=== PATIENT | female | born 1965 | race Caucasian/White ===

== ENCOUNTER 2019-08-30 06:00 | Outpatient (RCR) | payer MEDICAID, SELFPAY | END 2019-09-21 23:00 | disposition home or self-care (01) | LOC: TPT 06:00 | PROVIDERS: Family Provider Nurse Practitioner Family; Visit Provider Nurse Practitioner Family | DX: G89.29 Other chronic pain (principal); M54.5 Low back pain; M25.551 Pain in right hip | CPT/HCPCS: 97110 ×4; 97530 ×3; G0283 ==

== ENCOUNTER → 2019-11-13 10:18 | Outpatient (BNVA) | payer MEDICAID, SELFPAY | PROVIDERS: Visit Provider Nurse Practitioner Family | DX: E11.65 Type 2 diabetes mellitus with hyperglycemia (principal); J44.9 Chronic obstructive pulmonary disease, unspecified; E55.9 Vitamin D deficiency, unspecified; M19.90 Unspecified osteoarthritis, unspecified site; D73.9 Disease of spleen, unspecified; E04.1 Nontoxic single thyroid nodule; E78.5 Hyperlipidemia, unspecified; K21.9 Gastro-esophageal reflux disease without esophagitis; I10 Essential (primary) hypertension | CPT/HCPCS: 80053; 80061; 82306; 83036; 85025 ==

== ENCOUNTER 2019-12-02 12:04 | Outpatient (CLI) | payer MEDICAID, SELFPAY ==
[2019-12-02 14:36] LABS: Erythrocyte Sedimentation Rate 11 mm/hr (0-15)
[2019-12-03 11:37] LABS: Cyclic Citrullinated Peptide <16 UNITS
[2019-12-03 12:56] LABS: SS A Ro Sjogrens Antibody <1.0 NEG AI (<1.0 NEG); SS-B/LA IGG <1.0 NEG AI (<1.0 NEG)
[2019-12-03 14:45] LABS: Anti-Nuclear Antibody Screen NEGATIVE (NEGATIVE)
== END 2019-12-02 12:05 | disposition home or self-care (01) ==
LOC: LAB 12:08
PROVIDERS: PCP Nurse Practitioner Family; Visit Provider Internal Medicine Critical Care Medicine
DX: I27.20 Pulmonary hypertension, unspecified (principal)
CPT/HCPCS: 85651; 86038; 86140; 86235; 86431

== ENCOUNTER 2019-12-17 06:19 | Outpatient (CLI) | payer MEDICAID, SELFPAY ==
--- NOTE | 2019-12-17 07:15 | USCV_ITS ---
Rosalinda Roche Age: 54 Gender: F : 1965 Exam Date: 12/17/2019 08:06 Ordering Phys: Viiven Fisher MD ([email or web address]) Technologist: Alysha Conde Exam Location: [facility] [place] Indication: SOB BP: 118 / 90 HR: 107 Rhythm: Sinus Technical Quality: Fair MEASUREMENTS (Male / Female) Normal Values 2D ECHO LV Diastolic Diameter PLAX 4.2 cm 4.2 - 5.9 / 3.9 - 5.3 cm LV Systolic Diameter PLAX 3.2 cm LV Chamber Size 3.6 cm IVS Diastolic Thickness 1.4 cm 0.6 - 1.0 / 0.6 - 0.9 cm IVS Systolic Thickness 1.5 cm LVPW Diastolic Thickness 1.1 cm 0.6 - 1.0 / 0.6 - 0.9 cm LVPW Systolic Thickness 1.3 cm RV Chamber Size 3.2 cm LVOT Diameter 2.0 cm LV Ejection Fraction 2D Teich 46.4 % LV Ejection Fraction MOD 2C 39.2 % LV Ejection Fraction 2C AL 42.4 % LA Diameter 3.3 cm LA Width 2.8 cm LA Height 4.3 cm RA Width 2.9 cm RA Height 4.2 cm Aorta at Sinotubular Diameter 2.1 cm M-MODE LV Diastolic Diameter MM 5.2 cm 4.2 - 5.9 / 3.9 - 5.3 cm LV Systolic Diameter MM 3.8 cm LV Ejection Fraction MM Teich 51.7 % IVS Diastolic Thickness MM 1.2 cm 0.6 - 1.0 / 0.6 - 0.9 cm IVS Systolic Thickness MM 1.4 cm LVPW Diastolic Thickness MM 0.9 cm 0.6 - 1.0 / 0.6 - 0.9 cm LVPW Systolic Thickness MM 1.3 cm RV Diastolic Diameter MM 1.2 cm Aortic Annulus Diameter 3.5 cm LA Ao Ratio MM 1.0 MV E Point Septal Separation 0.7 cm DOPPLER AV Peak Velocity 123.0 cm/s LVOT Peak Velocity 103.0 cm/s AV Area Cont Eq vti 3.0 cm squared AV Area Cont Eq pk 2.7 cm squared MV Area PHT 4.5 cm squared Mitral E to A Ratio 1.0 MV E' Velocity 8.0 cm/s Mitral E to MV E' Ratio 7.4 Mitral E to LV E' Lateral Ratio 7.4 Mitral E to LV E' Septal Ratio 7.4 TV Peak E Velocity 44.0 cm/s Right Atrial Pressure 3.0 mmHg PV Peak Velocity 70.0 cm/s RV Acceleration Time 0.1 s RV Ejection Time 0.2 s RV AcT/ET 0.3 FINDINGS Left Ventricle Normal left ventricular cavity size. Normal left ventricular systolic function. Left ventricular ejection fraction is estimated at 55 %. No diagnostic regional wall motion abnormality. Normal diastolic function. Right Ventricle Normal right ventricular size and systolic function. Tricuspid valve regurgitant jet is inadequate for estimation of right ventricular systolic pressure. Right Atrium Normal right atrial size. Right atrial pressure estimated at 3 mmHg. Left Atrium Normal left atrial size. Mitral Valve Structurally normal mitral valve. No mitral valve stenosis. Trace mitral valve regurgitation. Aortic Valve Aortic valve not well visualized. Probably tricuspid aortic valve. No aortic valve stenosis. No aortic valve regurgitation. Tricuspid Valve Structurally normal tricuspid valve. Trace tricuspid valve regurgitation. Pulmonic Valve Pulmonic valve not well visualized. Trace pulmonary valve regurgitation. Pericardium No pericardial effusion. Aorta Normal size aortic root and proximal ascending aorta. CONCLUSIONS 1. This is a technically difficult study. Ultrasound enhancing agent (Optison) was used. 2. Normal left ventricular cavity size and systolic function. Left ventricular ejection fraction is estimated at 55 %. No diagnostic regional wall motion abnormality. 3. Normal right ventricular size and systolic function. 4. No significant valvular abnormality. 5. No prior similar studies to compare. Vivien Fisher MD (Electronically Signed) Final Date: 21 December 2019 18:29 S
[2019-12-17] MEDS: perflutren protein-a microsphr 0.22 mg/mL SDV 3 mL IV (08:10)
== END 2019-12-17 06:20 | disposition home or self-care (01) ==
LOC: US 06:21
PROVIDERS: Family Provider Nurse Practitioner Family; PCP Nurse Practitioner Family; Visit Provider Internal Medicine Cardiovascular Disease
DX: I08.1 Rheumatic disorders of both mitral and tricuspid valves (principal); R06.00 Dyspnea, unspecified; R06.02 Shortness of breath
CPT/HCPCS: C8924

== ENCOUNTER → 2019-12-30 16:22 | Outpatient (BNVA) | payer MEDICAID, SELFPAY | PROVIDERS: Family Provider Nurse Practitioner Family; PCP Nurse Practitioner Family; Visit Provider Nurse Practitioner Family | DX: J06.9 Acute upper respiratory infection, unspecified (principal) | CPT/HCPCS: 87400 ==

== ENCOUNTER → 2020-02-15 12:29 | Outpatient (BNVA) | payer MEDICAID, SELFPAY | PROVIDERS: Family Provider Nurse Practitioner Family; PCP Nurse Practitioner Family; Visit Provider Nurse Practitioner Family | DX: E11.65 Type 2 diabetes mellitus with hyperglycemia (principal); I10 Essential (primary) hypertension; E04.1 Nontoxic single thyroid nodule; E55.9 Vitamin D deficiency, unspecified; F41.9 Anxiety disorder, unspecified; F32.9 Major depressive disorder, single episode, unspecified; E78.5 Hyperlipidemia, unspecified; K21.9 Gastro-esophageal reflux disease without esophagitis; R00.0 Tachycardia, unspecified | CPT/HCPCS: 80053; 80061; 82044; 82306; 82607; 83036; 83721; 84443; 85025 ==

== ENCOUNTER → 2020-03-02 11:55 | Outpatient (BNVA) | payer MEDICAID, SELFPAY | PROVIDERS: Family Provider Nurse Practitioner Family; PCP Nurse Practitioner Family; Visit Provider Nurse Practitioner Family | DX: D72.829 Elevated white blood cell count, unspecified (principal) | CPT/HCPCS: 85025 ==

== ENCOUNTER 2020-03-16 06:38 | Outpatient (CLI) | payer MEDICAID, SELFPAY ==
--- NOTE | 2020-03-16 11:00 | PFTS_ITS ---
Date of Study:03/16/20 Date of Dictation: MECHANICS: Forced vital capacity (FVC) is reduced. Forced expiratory volume in one second (FEV1) is reduced. FEV1/FVC is normal. FLOW VOLUME LOOP: Narrow with mild scooping. LUNG VOLUMES: Total lung capacity (TLC) is normal. Residual volume (RV) is increased. DIFFUSING CAPACITY FOR CARBON MONOXIDE: Mildly reduced. INTERPRETATION: The pulmonary function tests are consistent with moderate restriction. There is no significant postbronchodilator response. The flow volume loop is suggestive of small airways disease. Lung volumes are consistent with air trapping. Gas exchange (DLCO) is mildly reduced. MTDD
== END 2020-03-16 06:39 | disposition home or self-care (01) ==
LOC: RT 06:39
PROVIDERS: Family Provider Nurse Practitioner Family; PCP Nurse Practitioner Family; Visit Provider Internal Medicine Critical Care Medicine
DX: R06.02 Shortness of breath (principal)
CPT/HCPCS: 94060; 94726; 94729; J7611

== ENCOUNTER 2020-03-16 12:00 | Outpatient (CLI) | payer MEDICAID, SELFPAY | END 2020-03-16 12:01 | disposition home or self-care (01) | LOC: SLEEP 03-17 09:04 | PROVIDERS: Family Provider Nurse Practitioner Family; PCP Nurse Practitioner Family; Visit Provider Internal Medicine Critical Care Medicine | DX: G47.10 Hypersomnia, unspecified (principal) | CPT/HCPCS: G0399 ==

== ENCOUNTER 2020-05-25 08:59 | Outpatient (CLI) | payer MEDICAID, SELFPAY ==
--- NOTE | 2020-05-25 09:30 | MM_ITS ---
WS: [id number] SCREENING DIGITAL MAMMOGRAM WITH CAD HISTORY: breast cancer screening COMPARISON: 03/03/2019 and 05/31/2017 Bilateral CC and MLO views submitted. Computer aided detection analyzed. Breast composition: There are scattered areas of fibroglandular density. No suspicious masses, microc alcifications or architectural distortion. Benign calcifications in each breast. MM/[id number] IMPRESSION: BI-RADS: 2-Benign FOLLOW UP: 1 Year Follow-up
== END 2020-05-25 09:00 | disposition home or self-care (01) ==
LOC: RADSHAW 09:02
PROVIDERS: PCP Nurse Practitioner Family; Visit Provider Nurse Practitioner Family
DX: Z12.31 Encounter for screening mammogram for malignant neoplasm of breast (principal)
CPT/HCPCS: 77067

== ENCOUNTER 2020-06-07 20:00 | Outpatient (CLI) | payer MEDICAID, SELFPAY ==
--- NOTE | 2020-07-18 14:10 | PC.SOCIAL ---
Was asked by Carmela in [facility] to complete a Cyber Access precert for patient to get approval for CPAP. Cyber Access precert request was denied and these results were faxed to Carmela at [facility].
== END 2020-06-07 20:01 | disposition home or self-care (01) ==
LOC: SLEEP 06-08 10:23
PROVIDERS: PCP Nurse Practitioner Family; Visit Provider Internal Medicine Critical Care Medicine
DX: G47.33 Obstructive sleep apnea (adult) (pediatric) (principal)
CPT/HCPCS: 95811

== ENCOUNTER → 2020-06-08 09:52 | Outpatient (BNVA) | payer MEDICAID, SELFPAY | PROVIDERS: PCP Nurse Practitioner Family; Visit Provider Nurse Practitioner Family | DX: E11.65 Type 2 diabetes mellitus with hyperglycemia (principal); E04.1 Nontoxic single thyroid nodule; Z79.899 Other long term (current) drug therapy; E55.9 Vitamin D deficiency, unspecified | CPT/HCPCS: 80053; 82043; 82306; 83036; 84443 ==

== ENCOUNTER → 2020-09-09 09:15 | Outpatient (BNVA) | payer MEDICAID, SELFPAY | PROVIDERS: PCP Nurse Practitioner Family; Visit Provider Nurse Practitioner Family | DX: E13.9 Other specified diabetes mellitus without complications (principal); E78.5 Hyperlipidemia, unspecified; I10 Essential (primary) hypertension; J32.9 Chronic sinusitis, unspecified | CPT/HCPCS: 80053; 80061; 83036 ==

== ENCOUNTER 2020-12-19 10:54 | Outpatient (CLI) | payer MEDICAID, SELFPAY ==
--- NOTE | 2020-12-19 10:58 | CT_ITS ---
WS: [id number] LDCT LUNG CANCER SCREENING HISTORY: NICOTINE DEPENDENCE TECHNIQUE: Axial imaging performed from the apices to 1 cm below the costophrenic angles. Coronal and sagittal reformats are submitted with axial MIP series. All CT scans at [facility] use at least one of these dose optimization techniques: automated exposure control; mA and/or kV adjustment per patient size (includes targeted exams where dose is matched to clinical indication); or iterativ e reconstruction. DLP: 57.35 mGy.cm DIvol: 1.58 mGy COMPARISON: 08/17/2019 Diagnostic quality: Satisfactory Lung Nodules: None. Lungs: Mild hyperexpansion. No granulomas. Heart: Normal size heart. No pericardial effusion. Other findings: Minimal atherosclerotic calcifications within the aorta. No adenopathy appreciated. CT/CT lung screening [id number] IMPRESSION: LUNG-RADS: 1-Negative FOLLOW UP: 12 Month: Continue annual screening with LDCT OTHER FINDINGS (S MODIFIER): None.
== END 2020-12-19 10:55 | disposition home or self-care (01) ==
LOC: CT 10:56
PROVIDERS: PCP Nurse Practitioner Family; Visit Provider Internal Medicine Critical Care Medicine
DX: Z12.2 Encounter for screening for malignant neoplasm of respiratory organs (principal); F17.210 Nicotine dependence, cigarettes, uncomplicated
CPT/HCPCS: 71271

== ENCOUNTER 2020-12-28 20:00 | Outpatient (CLI) | payer MEDICAID, SELFPAY | END 2020-12-28 20:01 | disposition home or self-care (01) | LOC: SLEEP 12-29 08:57 | PROVIDERS: PCP Nurse Practitioner Family; Visit Provider Internal Medicine Critical Care Medicine | DX: G47.33 Obstructive sleep apnea (adult) (pediatric) (principal) | CPT/HCPCS: 84550; 85651; 86038; 86140; 86431; 95810 ==

== ENCOUNTER 2021-01-04 10:07 | Outpatient (CLI) | payer MEDICAID, SELFPAY ==
--- NOTE | 2021-01-04 11:00 | USCV_ITS ---
Rosalinda Roche Age: 55 Gender: F : 1965 Exam Date: 01/04/2021 10:44 Ordering Phys: Vivien Fisher MD ([email or web address]) Technologist: Mere Malin Exam Location: [facility] [place] Indication: Premature ventricular complexes BP: / HR: 88 Rhythm: Sinus Technical Quality: Adequate MEASUREMENTS (Male / Female) Normal Values 2D ECHO LV Diastolic Diameter PLAX 2.9 cm 4.2 - 5.9 / 3.9 - 5.3 cm LV Systolic Diameter PLAX 2.5 cm LV Chamber Size 3.0 cm IVS Diastolic Thickness 1.4 cm 0.6 - 1.0 / 0.6 - 0.9 cm IVS Systolic Thickness 1.2 cm LVPW Diastolic Thickness 2.0 cm 0.6 - 1.0 / 0.6 - 0.9 cm LVPW Systolic Thickness 2.5 cm RV Chamber Size 2.3 cm LVOT Diameter 2.1 cm LV Ejection Fraction 2D Teich 30.3 % LV Ejection Fraction MOD 2C 44.8 % LV Ejection Fraction 2C AL 43.5 % LA Diameter 3.3 cm LA Width 2.3 cm LA Height 3.7 cm RA Width 2.6 cm RA Height 3.7 cm Aorta at Sinotubular Diameter 2.3 cm M-MODE LV Diastolic Diameter MM 5.1 cm 4.2 - 5.9 / 3.9 - 5.3 cm LV Systolic Diameter MM 3.1 cm LV Ejection Fraction MM Teich 68.6 % IVS Diastolic Thickness MM 1.2 cm 0.6 - 1.0 / 0.6 - 0.9 cm IVS Systolic Thickness MM 1.4 cm LVPW Diastolic Thickness MM 1.3 cm 0.6 - 1.0 / 0.6 - 0.9 cm LVPW Systolic Thickness MM 1.7 cm Aortic Annulus Diameter 3.3 cm LA Ao Ratio MM 1.1 MV E Point Septal Separation 1.5 cm FINDINGS Left Ventricle Normal left ventricular size, systolic function and wall thickness, with no regional wall motion abnormalities. Left ventricular ejection fraction is estimated at 60 %. Right Ventricle Normal right ventricular size and systolic function. Right Atrium Normal right atrial size. Left Atrium Normal left atrial size. Mitral Valve Mitral valve not well visualized. Aortic Valve Aortic valve not well visualized. Tricuspid Valve Tricuspid valve not well visualized. Pulmonic Valve Pulmonic valve not well visualized. Pericardium No pericardial effusion. Aorta Normal size aortic root. CONCLUSIONS 1. This is a limited echocardiogram. 2. Normal left ventricular size, systolic function and wall thickness, with no regional wall motion abnormalities. Left ventricular ejection fraction is estimated at 60 %. 3. No gross valvular abnormality. Color doppler evaluation was not done. 4. No significant change when compared to old echocardiogram dated 12/17/2019. Vivien Fisher MD (Electronically Signed) Final Date: 08 January 2021 12:19 S
== END 2021-01-04 10:08 | disposition home or self-care (01) ==
LOC: US 10:09
PROVIDERS: PCP Nurse Practitioner Family; Visit Provider Internal Medicine Cardiovascular Disease
DX: I49.3 Ventricular premature depolarization (principal)
CPT/HCPCS: 93308

== ENCOUNTER 2021-01-05 09:08 | Outpatient (CLI) | payer MEDICAID, SELFPAY ==
[2021-01-05] MEDS: iohexol 300 mg/mL 50 mL Btl PO (09:23)
--- NOTE | 2021-01-05 10:30 | CT_ITS ---
WS: [id number] CT ABDOMEN WITHOUT CONTRAST HISTORY: D73.89 - Other diseases of spleen Contiguous single phase 5 mm axial imaging performed to the abdomen. Oral contrast has been provided. Coronal and sagittal reformats are submitted. All CT scans at [facility] use at least on e of these dose optimization techniques: automated exposure control; mA and/or kV adjustment per danielle ent size (includes targeted exams where dose is matched to clinical indication); or iterative reconst ruction. CONTRAST: None DLP: 821.87 mGycm COMPARISON: 08/17/2019 Lower thorax: Unremarkable. Liver: Diffuse moderate to severe hepatic steatosis. The liver is enlarged measuring approximately 19 cm in length. No bile duct dilatation. Gallbladder: Normal. Pancreas: Normal. Spleen: Low-attenuation lesion from the superior lateral spleen measures 10 mm. Stable since 08/17/20 19. Probably a benign cyst. No splenomegaly. Adrenals: Normal. Right kidney: Normal. Left kidney: Normal. Aorta: 2 GI tract: Visualized appendix is normal. No GI tract obstruction. No wall thickening or edema. No adenopathy or free fluid. Abdominal wall: No hernia. Small subcutaneous nodules from prior subcutaneous injection sites. Visualized osseous structures: L4 anterolisthesis by 2 mm. Mild facet joint arthritis at L4-5 and L5- S1. CT/CT abdomen wo con [id number] IMPRESSION: 1. No soft tissue masses in the LEFT or RIGHT upper quadrants. 2. Marked hepatomegaly and hepatic steatosis.
== END 2021-01-05 09:09 | disposition home or self-care (01) ==
PROVIDERS: PCP Nurse Practitioner Family; Visit Provider Nurse Practitioner Family
DX: D73.89 Other diseases of spleen (principal); R16.0 Hepatomegaly, not elsewhere classified; K76.0 Fatty (change of) liver, not elsewhere classified
CPT/HCPCS: 74150; 80053; 80061; 82043; 83036; 84443; Q9967

== ENCOUNTER 2021-02-09 20:00 | Outpatient (CLI) | payer MEDICAID, SELFPAY | END 2021-02-09 20:01 | disposition home or self-care (01) | LOC: SLEEP 02-10 08:55 | PROVIDERS: PCP Nurse Practitioner Family; Visit Provider Internal Medicine Critical Care Medicine | DX: G47.33 Obstructive sleep apnea (adult) (pediatric) (principal) | CPT/HCPCS: 95811 ==

== ENCOUNTER → 2021-03-29 09:34 | Outpatient (BNVA) | payer MEDICARE, MEDICAID, SELFPAY | PROVIDERS: PCP Nurse Practitioner Family; Visit Provider Nurse Practitioner Family | DX: E13.9 Other specified diabetes mellitus without complications (principal); I10 Essential (primary) hypertension; Z12.4 Encounter for screening for malignant neoplasm of cervix; Z12.31 Encounter for screening mammogram for malignant neoplasm of breast; N94.9 Unspecified condition associated with female genital organs and menstrual cycle; E04.1 Nontoxic single thyroid nodule; Z78.9 Other specified health status; L98.9 Disorder of the skin and subcutaneous tissue, unspecified; E55.9 Vitamin D deficiency, unspecified; Z12.39 Encounter for other screening for malignant neoplasm of breast | CPT/HCPCS: 80053; 80061; 82306; 83036; 88175 ==

== ENCOUNTER 2021-04-06 13:33 | Outpatient (CLI) | payer MEDICARE, MEDICAID, SELFPAY ==
--- NOTE | 2021-04-06 14:15 | CT_ITS ---
WS: [id number] LDCT LUNG CANCER SCREENING HISTORY: Nicotine addiction TECHNIQUE: Axial imaging performed from the apices to 1 cm below the costophrenic angles. Coronal and sagittal reformats are submitted with axial MIP series. All CT scans at [facility] use at least one of these dose optimization techniques: automated exposure control; mA and/or kV adjustment per patient size (includes targeted exams where dose is matched to clinical indication); or iterativ e reconstruction. DLP: 58.94 mGy.cm DIvol: 1.58 mGy COMPARISON: 12/19/2020 Diagnostic quality: Satisfactory Lung Nodules: No pulmonary nodules or endobronchial lesions. Lungs: Mild hyperexpansion. Heart: Normal size heart. No pericardial effusion. Other findings: None. CT/CT lung screening [id number] IMPRESSION: LUNG-RADS: 1-Negative FOLLOW UP: 12 Month: Continue annual screening with LDCT OTHER FINDINGS (S MODIFIER): None.
== END 2021-04-06 13:34 | disposition home or self-care (01) ==
LOC: RAD 13:35
PROVIDERS: PCP Nurse Practitioner Family; Visit Provider Internal Medicine Critical Care Medicine
DX: Z12.2 Encounter for screening for malignant neoplasm of respiratory organs (principal); F17.210 Nicotine dependence, cigarettes, uncomplicated
CPT/HCPCS: 71271

== ENCOUNTER 2021-05-08 11:56 | Outpatient (CLI) | payer MEDICARE, MEDICAID, SELFPAY ==
--- NOTE | 2021-05-08 12:45 | US_ITS ---
WS: [id number] ULTRASOUND THYROID TECHNIQUE: Ultrasound of the thyroid. CLINICAL INFORMATION: E04.1 - Nontoxic single thyroid nodule COMPARISON: September 01, 2019 and FINDINGS: Thyroid: Right and left thyroid lobes are normal in size and echotexture. Multiple bilateral thyroid nodules largest in the left lobe. Prior FNA of the largest left lobe nodule. Right thyroid lobe: 5.5 cm x 2.0 cm x 1.7 cm Small right complex nodule measuring 4.6 x 5.6 mm. Left thyroid lobe: 6.2 cm x 2.0 cm x 2.5 cm. Complex cystic left mid thyroid nodule measuring 7.0 x 8.8 x 7.4 mm Additional cystic and solid left thyroid nodule measuring 11 x 14 x 15 mm Isthmus: 0.5 mm. Cervical lymphadenopathy: None. US/US thyroid [id number] IMPRESSION: Small bilateral thyroid nodules are unchanged since
--- NOTE | 2021-05-08 13:30 | US_ITS ---
WS: [id number] ULTRASOUND PELVIS TECHNIQUE: Transabdominal and transvaginal. ULTRASOUND PELVIS TECHNIQUE: Transabdominal. CLINICAL INFORMATION: N94.9 - Unspecified condition associated with female jenna... LMP: : No. COMPARISON: None. FINDINGS: Uterus Orientation: Anteverted. Size: 6.4 cm x 3.9 cm x 2.8 cm. Masses: Multiple small intramural fundal fibroids in the uterus. Largest fibroid measures 1.0 x 1.1 x 1.2 cm Cervix: Incidental nabothian cysts. Indeterminant complex cystic lesion in the cervix measuring 8.1 x 4.8 mm Endometrium: Normal. Endometrium thickness: 0.2 cm. Adnexa: Ovaries not visualized due to pelvic pain. Free fluid: None Other findings: None. US/US pelvic with transvaginal IMPRESSION: 1. Fibroid uterus 2. Complex cystic lesion in the cervix measuring 8.1 x 4.8 mm. Recommend furth er evaluation with hysteroscopy 3. Normal endometrium measuring 2 mm. 4. Ovaries not visualized due to pelvic pain. 5. No free fluid in the cul-de-sac.
== END 2021-05-08 11:57 | disposition home or self-care (01) ==
LOC: US 11:56
PROVIDERS: PCP Nurse Practitioner Family; Visit Provider Nurse Practitioner Family
DX: E04.1 Nontoxic single thyroid nodule (principal); N94.9 Unspecified condition associated with female genital organs and menstrual cycle
CPT/HCPCS: 76536; 76830; 76856

== ENCOUNTER → 2021-05-16 09:55 | Outpatient (BNVA) | payer MEDICARE, MEDICAID, SELFPAY | PROVIDERS: PCP Nurse Practitioner Family; Visit Provider Nurse Practitioner Family | DX: E04.1 Nontoxic single thyroid nodule (principal); Z79.899 Other long term (current) drug therapy; D25.9 Leiomyoma of uterus, unspecified | CPT/HCPCS: 80053; 84443 ==

== ENCOUNTER 2021-05-29 10:31 | Outpatient (CLI) | payer MEDICARE, MEDICAID, SELFPAY ==
--- NOTE | 2021-05-29 10:30 | MM_ITS ---
WS: [id number] BILATERAL DIGITAL SCREENING MAMMOGRAPHY WITH CAD CLINICAL INFORMATION: Z12.31 - Encounter for screening mammogram for malignant ... HISTORY: Screening mammogram. No current complaints. COMPARISON: May 25, 2020 TECHNIQUE: Bilateral CC and MLO views. FINDINGS: Scattered fibroglandular densities bilaterally. Punctate and lucent centered calcifications. No suspi cious focal mass, asymmetry, calcifications, or architectural distortion. No evidence of malignancy. MM/[place] [id number] IMPRESSION: BI-RADS: 2-Benign FOLLOW UP: 1 Year Follow-up Recommend return to annual screening mammography.
== END 2021-05-29 10:32 | disposition home or self-care (01) ==
LOC: RADSHAW 10:33
PROVIDERS: PCP Nurse Practitioner Family; Visit Provider Nurse Practitioner Family
DX: Z12.31 Encounter for screening mammogram for malignant neoplasm of breast (principal)
CPT/HCPCS: 77067

== ENCOUNTER → 2021-06-29 08:40 | Outpatient (BNVA) | payer MEDICARE, MEDICAID, SELFPAY | PROVIDERS: PCP Nurse Practitioner Family; Visit Provider Nurse Practitioner Family | DX: I10 Essential (primary) hypertension (principal); E11.9 Type 2 diabetes mellitus without complications; E78.5 Hyperlipidemia, unspecified; E11.65 Type 2 diabetes mellitus with hyperglycemia; Z71.6 Tobacco abuse counseling | CPT/HCPCS: 80053; 80061; 83036 ==

== ENCOUNTER → 2021-07-25 08:27 | Outpatient (BNVA) | payer MEDICARE, MEDICAID, SELFPAY | PROVIDERS: PCP Nurse Practitioner Family; Visit Provider Nurse Practitioner Family | DX: E11.65 Type 2 diabetes mellitus with hyperglycemia (principal) | CPT/HCPCS: 83036 ==

== ENCOUNTER → 2021-07-27 10:07 | Outpatient (BNVA) | payer MEDICARE, MEDICAID, SELFPAY | PROVIDERS: PCP Nurse Practitioner Family; Visit Provider Obstetrics & Gynecology | DX: D25.9 Leiomyoma of uterus, unspecified (principal); G89.29 Other chronic pain; R10.2 Pelvic and perineal pain; Z87.42 Personal history of other diseases of the female genital tract; Z20.822 Contact with and (suspected) exposure to COVID-19 | CPT/HCPCS: 87635 ==

== ENCOUNTER 2021-08-01 10:44 | Inpatient (IN) | payer MEDICARE, MEDICAID, SELFPAY ==
[2021-07-31 11:05] VITALS: BMI 34.6
[2021-08-01] VITALS (26 sets, daily range): BP systolic 92–126; BP diastolic 45–79; PULSE 87–96; RESP 14–29; TEMP 36.4–37.2; O2SAT 87–95
[2021-08-01] MEDS: sodium chloride 0.9% 1,000 ML 30 ML IV (06:34)
[2021-08-01] MEDS: acetaminophen 1,000 MG/100 ML PIGGYBACK 400 MG IV (06:36)
[2021-08-01 06:37] LABS: Glucose Point of Care 158 mg/dL (70-110)
[2021-08-01] MEDS: CELEcoxib 200 mg Capsule 400 MG PO (06:39)
[2021-08-01] MEDS: phenazopyridine 100 mg Tablet 200 MG PO (06:39)
[2021-08-01] MEDS: ketorolac 30 mg/mL INJ IVP ×3 (07:03→19:07)
--- NOTE | 2021-08-01 07:12 | ANES.PREANE2 ---
Pre-Anesthetic Assessment Pre-Anesthetic Assessment: Height/Weight: Height 1.65 m Weight 94.347 kg Temp Pulse Resp BP Pulse Ox 97.5 F L 95 20 H 106/60 94 08/01/21 06:15 08/01/21 06:15 08/01/21 06:15 08/01/21 06:15 08/01/21 06:15 Preop Diagnosis: leiomyoma, pelvic pain, cervical mass Proposed Procedure: Operation Date: 08/01/21 07:00 Proposed Procedures p Laparoscopic Assist Vaginal Hysterectomy 23964 D25.9 Z87.42 R10.2(Not Applicable) - Latisha Liu MD s Laparoscopic Salpingo Oophorectomy 36140 D25.9 Z87.42 R10.2(Not Applicable) - Latisha Liu MD Familial anesthetic complications: none Was Beta Jessika taken within 24 hours: Yes Was Clonidine taken within 24 hours: N/A Last intake: Intake Last Liquid Date 07/31/21 Last Liquid Time 19:30 Last Solid Date 07/31/21 Last Solid Time 20:00 Social: Social History: No alcohol Exam: Pre-Anes Outpt Exam: alert, oriented x 3, clear to auscultation bilaterally and regular rate & rhythm Airway: Cervical ROM: WNL MP: 3 Dentition: Full Pulmonary: Pulmonary: COPD CV/HEM: CV/HEM: Angina (Stable) and Arrythmia (pvcs) Metabolic: Metabolic: DM, Hyperlipidemia and Morbid obesity Anesthetic Plan: ASA status: 3 Anesthesia: General Risk of > 500 ml blood loss (7ml/kg in children): No Meds/Allergies Current Medications: Current Medications Generic Name Dose Route Start Last Admin Trade Name Freq PRN Reason Stop Dose Admin Sodium Chloride 1,000 mls @ 30 ml s/hr 08/01/21 06:00 08/01/21 06:34 Sodium Chloride 0.9% IV 08/02/21 05:59 30 mls/hr .Q24H MILENA Administration PFSH Anesthesia PFSH: Medical History GERD (gastroesophageal reflux disease) Hyperlipidemia Lesion of spleen Symptomatic PVCs Thyroid nodule Vitamin D deficiency Surgical History History of D&C History of loop electrical excision procedure (LEEP) Hx of arthroscopy of left knee Hx of section Hx of tonsillectomy Hx of tubal ligation Family History Family/Other No problems noted. Mother CHF (congestive heart failure) COPD (chronic obstructive pulmonary disease) Diabetes Hyperlipidemia Hypertension Thyroid disease Grandmother CHF (congestive heart failure) Maternal COPD (chronic obstructive pulmonary disease) Maternal Diabetes Maternal Hyperlipidemia Maternal Hypertension Maternal Thyroid disease Maternal Denies family history of CAD (coronary artery disease) Clotting disorder Chronic kidney disease (CKD) Bleeding disorder Cancer Stroke Data Anesthesia CBC & Chem 7: 08/01/21 06:20 08/01/21 06:20 Other Labs: Laboratory Results - last 48 hr 08/01/21 06:31 POC Glucose 158 H Cardiac Studies: Echocardiogram 12/17/19
[2021-08-01 07:14] LABS: Basophils # 0.1 10^3/uL (0.0-0.1); Basophils % 0.6 %; Eosinophils # 0.2 10^3/uL (0.0-0.8); Eosinophils % 2.1 %; Hematocrit 43.8 % (37.0-47.0); Hemoglobin 14.8 g/dL (11.5-15.3); Lymphocytes # 2.3 10^3/uL (0.8-4.8); Lymphocytes % 29.6 %; Mean Corpuscular HGB Conc 33.8 g/dL (30.0-36.0); Mean Corpuscular Hemoglobin 30.9 pg (28.0-34.0); Mean Corpuscular Volume 91.4 fl (81-99); Mean Platelet Volume 10.1 fL (7.4-10.4); Monocytes # 0.5 10^3/uL (0.2-0.9); Monocytes % 6.6 %; Neutrophils # 4.72 10^3/uL (1.8-7.7); Neutrophils % 60.8 %; Nucleated Red Blood Cells % 0 %; Platelet Count 299 10^3/cmm (130-400); Red Blood Count 4.79 10^6/uL (4.1-5.3); Red Cell Distribution Width 13.2 % (12.1-15.1); White Blood Count 7.8 10^3/uL (4.0-10.0)
--- NOTE | 2021-08-01 07:37 | W.PM.OPSUD ---
Surgery/Procedure H&P Update DATE OF PROCEDURE: August 01, 2021 DATE H&P PERFORMED: 07/27/21 H&P UPDATE INFORMATION: I have reviewed H&P completed within last 30 days, I have examined patient prior to procedure and No changes to prior documentation PREOP DIAGNOSIS: leiomyoma, pelvic pain, cervical mass PLANNED PROCEDURE: Operation Date: 08/01/21 07:00 Proposed Procedures p Laparoscopic Assist Vaginal Hysterectomy 75737 D25.9 Z87.42 R10.2(Not Applicable) - Latisha Liu MD s Laparoscopic Salpingo Oophorectomy 29779 D25.9 Z87.42 R10.2(Not Applicable) - Latisha Liu MD
--- NOTE | 2021-08-01 09:15 | SUR.OPER ---
0827 surgery converted to open procedure, family (Radha) notified.
--- NOTE | 2021-08-01 10:29 | P.OP_ITS ---
Operative Report Date of procedure: August 01, 2021 Pre-op Diagnosis: leiomyoma, pelvic pain, cervical mass Post-op diagnosis: same Post-op Findings: severe pelvic adhesions. Bowel and omentum adhesed to abdominal wall and bilateral pelvic sidewall Procedure Done: Total abdominal hysterectomy with bilateral salpingoophorectomy Specimens removed/disposition: uterus, bilateral fallopian tubes and ovaries to pathology Surgeon: Latisha Liu Estimated blood loss (mL): 100 IV fluids (mL): 1,000 Urine output (mL): 700 Complications: laparoscopy turned to open case due to dense abdominal adhesions. Condition: stable Disposition: floor Procedure: The patient was taken to the operating room where general anesthesia was administered and found to be adequate. She was prepped and draped in the normal sterile fashion in the dorsal lithotomy position. A osborn catheter was placed. The anterior lip of the cervix was grasped with a single-tooth tenaculum. The cervix was dilated to 14 Palauan and the uterine manipulator placed. The gloves were changed. Attention was then turned to the abdomen. A 5 mm an infraumbilical incision was made. The 5 mm trocar was placed under direct visualization. Gas was administered and the abdomen insufflated. There were dense adhesions of the fifth omentum small bowel and large bowel to the abdominal wall. Visualization was nil. A decision was made to open the patient and perform an abdominal hysterectomy. The uterine manipulator was removed. The gloves were changed again. A Pfannenstiel skin incision was made and carried down to the underlying layer of fascia. The fascia was nicked in the midline and extended laterally with the Guy scissors. The fascia was then tented up and the rectus muscles dissected off sharply. The rectus muscles were in the midline and the abdomen entered bluntly with the digit. This peritoneal incision was extended superiorly and inferiorly with good visualization of the bladder. The O'Jamshid-O'Chisholm retractor was placed . There were adhesions of the omentum to the abdominal wall. This was taken down with the cautery. The bowel and omental adhesions were removed from the uterus, and adnexae. The pelvis appeared almost normal and the bowel was able to be packed away. The blades to the retractor were placed. The round ligament was suture-ligated and opened. This was performed bilaterally. A window was made medial to the infundibulopelvic ligament and inferior to the fallopian tube and ovary. The infundibulopelvic ligament was clamped cut and suture-ligated bilaterally. The bladder flap was created sharply with the metzenbaum scissors and the bladder reflected caudally. The uterine arteries were clamped cut and suture ligated. Using the cautery device, The cardinal ligaments were cauterized down to the angle of the vagina. The vaginal cuff was clamped and cut and the specimen was removed. The vaginal cuff was closed with 0 Vicryl incorporating the uterosacral ligaments into the lateral aspects of the vaginal cuff. There was excellent hemostasis. The pelvis was irrigated. The O'Jamshid- O'Chisholm retractor as well as the packing was removed. The peritoneum was closed with 3-0 Monocryl in a running fashion. The fascia was closed with 0 Vicryl in a running fashion with 2 separate sutures overlapping in the midline. The skin was closed with absorbable aimee. The patient tolerated the procedure well. Sponge lap and needle counts were correct x2. She was taken to the recovery room in stable condition.
--- NOTE | 2021-08-01 10:56 | W.PM.OPSUD ---
Surgery/Procedure H&P Update DATE OF PROCEDURE: August 01, 2021 DATE H&P PERFORMED: 07/27/21 PREOP DIAGNOSIS: leiomyoma, pelvic pain, cervical mass PLANNED PROCEDURE: Operation Date: 08/01/21 07:00 Proposed Procedures p Laparoscopic Assist Vaginal Hysterectomy 31369 D25.9 Z87.42 R10.2(Not Applicable) - Latisha Liu MD s Laparoscopic Salpingo Oophorectomy 48497 D25.9 Z87.42 R10.2(Not Applicable) - Latisha Liu MD Related Problem List Diagnoses (1) Leiomyoma of body of uterus: (2) Cervical mass:
[2021-08-01] MEDS: fentaNYL 50 mcg/mL INJ 2mL IVP ×2 (11:00→11:16)
[2021-08-01 11:24] LABS: Alanine Aminotransferase 12 U/L (0-33); Alkaline Phosphatase 37 IU/L (35-105); Anion Gap 13.5 (5-19); Aspartate Amino Transferase 12 U/L (0-32); Blood Urea Nitrogen 15 mg/dL (6-20); Calcium 8.5 mg/dL (8.5-10.5); Carbon Dioxide 24 mmol/L (22-29); Chloride 106 mmol/L (98-107); Glomerular Filtration Rate 163.9 mL/min (90-130); Glucose 230 mg/dL (65-115); Osmolality Calculated 296 mOsm/kg (285-295); Potassium 4.5 mmol/L (3.5-5.1); Sodium 139 mmol/L (136-145); Total Bilirubin 0.2 mg/dL (0.15-1.2)
[2021-08-01] MEDS: oxyCODONE-APAP 5-325 mg Tablet PO ×2 (12:55→22:19)
[2021-08-01] MEDS: ondansetron 2 mg/ML SDV 2 mL 4 MG IVP (13:48)
[2021-08-01] MEDS: NICOTINE 21 MG/24 HR 1 EACH TRANSDERMA (18:41)
[2021-08-01] MEDS: metformin 500 mg Tablet 1000 MG PO (18:41)
[2021-08-01] MEDS: lactated ringers 1,000 ML 125 ML IV (18:42)
[2021-08-01 19:16] LABS: Glucose Point of Care 155 mg/dL (70-110)
--- NOTE | 2021-08-01 19:30 | PC.NURSE ---
Patient up ambulating on unit. Patient walked 5 laps around unit before returning to bed. Patient tolerated activity well.
[2021-08-02] VITALS (8 sets, daily range): BP systolic 94–107; BP diastolic 54–68; PULSE 79–103; RESP 14–20; TEMP 36.6–37.1; O2SAT 90–98
[2021-08-02] MEDS: ketorolac 30 mg/mL INJ IVP (00:33)
[2021-08-02 05:03] LABS: Hematocrit 36.2 % (37.0-47.0); Hemoglobin 11.8 g/dL (11.5-15.3); Mean Corpuscular HGB Conc 32.6 g/dL (30.0-36.0); Mean Corpuscular Hemoglobin 30.7 pg (28.0-34.0); Mean Corpuscular Volume 94.3 fl (81-99); Platelet Count 231 10^3/cmm (130-400); Red Blood Count 3.84 10^6/uL (4.1-5.3); Red Cell Distribution Width 13.2 % (12.1-15.1); White Blood Count 9.2 10^3/uL (4.0-10.0)
[2021-08-02] MEDS: lactated ringers 1,000 ML 125 ML IV (05:28)
[2021-08-02] MEDS: oxyCODONE-APAP 5-325 mg Tablet PO ×3 (06:15→20:22)
[2021-08-02 07:24] LABS: Glucose Point of Care 160 mg/dL (70-110)
[2021-08-02] MEDS: atorvastatin 40 mg Tablet 20 MG PO (08:57)
[2021-08-02] MEDS: metformin 500 mg Tablet PO (08:57)
[2021-08-02] MEDS: pantoprazole DR 40 mg Tablet PO (08:57)
[2021-08-02] MEDS: metformin 500 mg Tablet 1000 MG PO ×2 (08:57→18:24)
[2021-08-02] MEDS: duloxetine 30 mg Capsule PO (08:58)
[2021-08-02] MEDS: docusate sodium 100 mg Capsule PO ×2 (08:58→18:24)
[2021-08-02] MEDS: duloxetine 60 mg Capsule PO (08:58)
[2021-08-02] MEDS: metoprolol succinate ER (24 HR) 25 mg Tablet PO (08:58)
[2021-08-02] MEDS: fenofibrate 145 mg Tablet PO (08:58)
[2021-08-02] MEDS: ibuprofen 800 mg tablet PO ×2 (10:49→18:24)
--- NOTE | 2021-08-02 12:22 | P.PN_ITS ---
Vitals/I&O/Wt Last Vital Signs Temp 98.7 F 08/02/21 04:27 Pulse 82 08/02/21 04:27 Resp 18 08/02/21 06:15 BP 101/68 08/02/21 04:27 Pulse Ox 98 08/02/21 04:27 08/01/21 08/02/21 08/02/21 22:59 06:59 14:59 Intake Total 1120 / 1380 Output Total 1050 / 2550 1375 / 3925 Balance -1050 / -2290 -255 / -2545 Physical Exam Narrative: EXAM NARRATIVE: The patient is doing well this morning. she is sitting in her chair. She reports pain is well controlled. She is having minimal vaginal spotting. She is ambulating and tolerating a regular diet. Const: COMMON NORMALS: no acute distress, patient oriented x3, no limitations and alert GENERAL APPEARANCE: cooperative, comfortable, well kempt and well developed ORIENTATION/CONSCIOUSNESS: Yes awake, Yes oriented to person, Yes oriented to place and Yes oriented to time Resp: COMMON NORMALS: normal respiratory effort EFFORT & INSPECTION: Yes able to speak in complete sentences GI: COMMON NORMALS: Soft to palpation and non-tender PALPATION: Yes Soft to palpation Extremity: COMMON NORMALS: no calf tenderness Neuro: COMMON NORMALS: patient oriented x3 SENSORIUM/ORIENTATION: Yes alert, Yes oriented to person, Yes oriented to place and Yes oriented to time Psych: APPEARANCE: Yes well kempt Urinary Catheter Management^: Valdez: Cath Placed During This Visit: yes, but has since been removed by the nurse Reason for Continuing Indwelling Catheter: Perioperative Use in Selected Surgeries Date Urinary Catheter Removed: 08/02/21 Time Urinary Catheter Discontinued: 05:05 Data : 08/02/21 04:35 08/01/21 10:52 Micro: Microbiology 08/01/21 06:20 Urine Culture - Preliminary Urine Catheterized A&P Assessment and plan (1) Postoperative state: doing well postoperatively continue with routine care Status: Acute Attestations Medical Necessity Statement*: The patient had an abdominal hysterectomy. she will be here until tomorrow. Coding Level of Care Code Acute Utility Bag Assembler for Malika Garland Diagnoses Postoperative state Z98.890
[2021-08-02] MEDS: ondansetron 2 mg/ML SDV 2 mL 4 MG IVP ×2 (15:16→20:23)
[2021-08-02 19:44] LABS: Glucose Point of Care 185 mg/dL (70-110)
[2021-08-02] MEDS: NICOTINE 21 MG/24 HR 1 EACH TRANSDERMA (20:18)
[2021-08-03] MEDS: ibuprofen 800 mg tablet PO (02:58)
[2021-08-03 05:02] VITALS: BP 122/77; PULSE 86; RESP 14; O2SAT 97
[2021-08-03 07:09] LABS: Glucose Point of Care 149 mg/dL (70-110)
[2021-08-03] MEDS: HYDROcodone-acetaminophen 5-325 mg Tablet 1 TAB PO (07:50)
[2021-08-03] MEDS: ondansetron 4 MG Tablet PO (07:50)
[2021-08-03] MEDS: docusate sodium 100 mg Capsule PO (09:28)
[2021-08-03] MEDS: pantoprazole DR 40 mg Tablet PO (09:28)
[2021-08-03] MEDS: atorvastatin 40 mg Tablet 20 MG PO (09:29)
[2021-08-03] MEDS: metformin 500 mg Tablet 1000 MG PO (09:29)
[2021-08-03] MEDS: metformin 500 mg Tablet PO (09:29)
[2021-08-03] MEDS: duloxetine 30 mg Capsule PO (09:30)
[2021-08-03] MEDS: metoprolol succinate ER (24 HR) 25 mg Tablet PO (09:30)
[2021-08-03] MEDS: fenofibrate 145 mg Tablet PO (09:30)
[2021-08-03] MEDS: duloxetine 60 mg Capsule PO (09:30)
--- NOTE | 2021-08-03 09:55 | P.DS_ITS ---
Discharge Providers Date of Admission: 08/01/21 10:44 Date of Discharge: August 03, 2021 Attending Provider at Admission: Latisha Liu MD Attending Provider at Discharge: Latisha Liu MD Primary Care Provider: SHANI Harrington Diagnoses at Discharge Discharge Diagnosis (1) Postoperative state: Status: Acute Reason for Visit Reason for Visit: Uterine fibroids Hospital Course Hospital Course The patient was admitted for surgery. She did well postoperatively and was ready for discharge. She was having some nausea with the oxycodone. She was switched to the hydrocodone (adverse reaction-nausea) She was able to take this with zofran and it controlled her pain and she denies nausea. She was discharged home in stable condition. Physical Exam Narrative: EXAM NARRATIVE: The patient is doing well this morning. she denies any concerns. Const: COMMON NORMALS: no acute distress, patient oriented x3, alert and well nourished GENERAL APPEARANCE: cooperative, well kempt and well developed ORIENTATION/CONSCIOUSNESS: Yes awake, Yes oriented to person, Yes oriented to place and Yes oriented to time Resp: COMMON NORMALS: normal respiratory effort EFFORT & INSPECTION: Yes able to speak in complete sentences GI: COMMON NORMALS: Soft to palpation and non-tender INSPECTION: Yes central obesity PALPATION: Yes Soft to palpation Extremity: COMMON NORMALS: no calf tenderness Neuro: COMMON NORMALS: patient oriented x3 SENSORIUM/ORIENTATION: Yes alert, Yes oriented to person, Yes oriented to place and Yes oriented to time Psych: APPEARANCE: Yes well kempt Skin: WOUNDS: Yes surgical site (clean/dry/covered) Urinary Catheter Management^: Valdez: Cath Placed During This Visit: yes, but has since been removed by the nurse Reason for Continuing Indwelling Catheter: Perioperative Use in Selected Surgeries Date Urinary Catheter Removed: 08/02/21 Time Urinary Catheter Discontinued: 05:05 Discharge Data Data Completed and Pending: Pending at discharge Category Date Time Status Pathology: Surgic al [PTH] Routine Pth 08/01/21 10:36 Received Labs from last 24 hours 08/03/21 08/02/21 07:03 19:41 POC Glucose 149 H 185 H Vitals: Last Vital Signs Temp 98.1 F 08/02/21 16:48 Pulse 86 08/03/21 05:02 Resp 14 08/03/21 05:02 BP 122/77 08/03/21 05:02 Pulse Ox 97 08/03/21 05:02 Discharge Plan Discharge Patient Disposition: Home Condition: Stable Prescriptions: New hydrocodone-acetaminophen 5-325 mg Tablet 1 tab PO Q4H PRN (Reason: Moderate Pain) Qty: 30 RF: 0 ondansetron HCl 4 mg Tablet 4 mg PO Q6H PRN (Reason: Nausea And Vomiting) Qty: 30 RF: 0 docusate sodium 100 mg Capsule 100 mg PO BID Qty: 60 RF: 0 Continued albuterol sulfate 2.5 mg /3 mL (0.083 %) solution for nebulization 2.5 mg INHALATION Q4H PRN (Reason: shortness of breath or wheezing) Qty: 90 RF: 1 azelastine 137 mcg (0.1 %) aerosol,spray 1 spray INTRANASAL BID 30 Days Qty: 30 RF: 4 magnesium oxide 400 mg magnesium capsule 400 mg PO DAILY RF: 0 (DME) pen needle, diabetic [1st Tier Unifine Pentips Plus] 31 gauge x 5/16 needle See Rx Instructions .ROUTE .MEDSUPPLY Qty: 4 RF: 2 metformin 500 mg tablet 500 mg PO DAILY Qty: 90 RF: 0 albuterol sulfate [ProAir HFA] 90 mcg/actuation HFA aerosol inhaler 2 puff INHALATION Q6H PRN (Reason: shortness of breath or wheezing) Qty: 18 RF: 2 (DME) True Metrix Level 1 Solution See Rx Instructions .Route Qty: 1 RF: 0 (DME) Blood Glucose Test Strip See Rx Instructions .ROUTE .MEDSUPPLY Qty: 100 RF: 3 cholecalciferol (vitamin D3) [Vitamin D3] 125 mcg (5,000 unit) tablet 125 mcg PO DAILY Qty: 90 RF: 1 glipizide 10 mg tablet See Rx Instructions .ROUTE .COMPLEX Qty: 90 RF: 0 Spiriva Respimat 2.5 mcg/actuation mist 2 puff inhalation DAILY Qty: 4 RF: 3 nitroglycerin 0.4 mg tablet, sublingual 0.4 mg SUBLINGUAL Q5M PRN (Reason: chest pain) Qty: 25 RF: 3 duloxetine [Cymbalta] 30 mg capsule,delayed release(DR/EC) 30 mg PO DAILY Qty: 90 RF: 0 omeprazole 20 mg capsule,delayed release(DR/EC) 20 mg PO DAILY Qty: 90 RF: 1 lovastatin 40 mg tablet 40 mg PO DAILY RF: 0 meloxicam 7.5 mg tablet 7.5 mg PO DAILY RF: 0 potassium chloride 8 mEq tablet extended release 8 meq PO DAILY RF: 0 metformin 1,000 mg tablet 1,000 mg PO BID RF: 0 metoprolol succinate 25 mg tablet extended release 24 hr 25 mg PO DAILY RF: 0 duloxetine 60 mg capsule,delayed release(DR/EC) 60 mg PO DAILY RF: 0 fenofibrate nanocrystallized 145 mg tablet 145 mg PO DAILY RF: 0 Jardiance 25 mg tablet 25 mg PO DAILY RF: 0 nicotine 21 mg/24 hr Patch 24 Hour 1 patch TRANSDERMAL DAILY RF: 0 Discharge Orders: Discharge Order (Routine); Ordered 08/03/21 Ordered By: Latisha Liu Referrals: Hernna Clinton MD [Physician] - 08/07/21 10:45 am (Your 1 week post-op appointment is scheduled for 08/07/21 @10:45. Your 6 week post-op appointment is scheduled for 09/11/21 @8:30. ) Patient Instructions: Opioid Safety (DC), Hysterectomy (DC), OB Abdominal Surgery - [facility], OB Discharge Report, OB Food/Drug Interaction Guide, Opioid Safety Discharge Attestations Time Spent in Discharge Care*: less than 30 min Quality Metrics Clinical Quality Measures During this hospital stay, did patient experience: None Coding Level of Care Code Acute Chg FW DC note Diagnoses Postoperative state Z98.890
[2021-08-03 10:38] VITALS: BP 115/64; PULSE 85; RESP 18; TEMP 36.8; O2SAT 94
[2021-08-03 11:54] LABS: Glucose Point of Care 144 mg/dL (70-110)
== END 2021-08-03 12:00 | disposition home or self-care (01) | DRG 743 ==
LOC: OBGYN 08-02 07:29
PROVIDERS: Admitting Provider Obstetrics & Gynecology; PCP Nurse Practitioner Family; Visit Provider Obstetrics & Gynecology
PROC: 0UT90ZZ Resection of Uterus, Open Approach (ICD-10-PCS; CPT 58150; principal; 2021-08-01 07:00)
PROC: 0UT90ZZ Resection of Uterus, Open Approach (ICD-10-PCS; CPT 58720; 2021-08-01 07:00)
PROC: 0UT9FZZ Resection of Uterus, Via Natural or Artificial Opening With Percutaneous Endoscopic Assistance (ICD-10-PCS; 2021-08-01 07:00)
DX: D25.9 Leiomyoma of uterus, unspecified (principal); N88.8 Other specified noninflammatory disorders of cervix uteri; N73.6 Female pelvic peritoneal adhesions (postinfective); E11.9 Type 2 diabetes mellitus without complications; E78.5 Hyperlipidemia, unspecified; E66.01 Morbid (severe) obesity due to excess calories; Z68.34 Body mass index [BMI] 34.0-34.9, adult; I49.3 Ventricular premature depolarization; K21.9 Gastro-esophageal reflux disease without esophagitis; F17.210 Nicotine dependence, cigarettes, uncomplicated; Z79.84 Long term (current) use of oral hypoglycemic drugs
CPT/HCPCS: 36415; 36416; 80053; 82962; 85025; 85027; 87086; 88307; 90471; 90686; 96374; J0330; J0690; J1100; J1885; J2405; J2704; J2710; J3010; J3490; J7030; Q0162

== ENCOUNTER → 2021-10-17 09:22 | Outpatient (BNVA) | payer MEDICARE, MEDICAID, SELFPAY | PROVIDERS: PCP Nurse Practitioner Family; Visit Provider Nurse Practitioner Family | DX: Z20.822 Contact with and (suspected) exposure to COVID-19 (principal); E11.65 Type 2 diabetes mellitus with hyperglycemia; E11.9 Type 2 diabetes mellitus without complications; E55.9 Vitamin D deficiency, unspecified; I10 Essential (primary) hypertension; E78.5 Hyperlipidemia, unspecified | CPT/HCPCS: 80053; 80061; 82306; 83036; 87635 ==

== ENCOUNTER 2021-11-13 08:47 | Outpatient (CLI) | payer MEDICARE, MEDICAID, SELFPAY ==
--- NOTE | 2021-11-13 10:00 | NM_ITS ---
WS: [email or web address] NUCLEAR MEDICINE HIDA SCAN CLINICAL INFORMATION: R10.11 - Right upper quadrant pain TECHNIQUE: Following intravenous administration of 7.3 mCi of technetium 99m mebrofenin, images of th e abdomen were obtained over the course of 60 minutes. Next, gallbladder ejection fraction was determ ined by obtaining preprandial and one-hour postprandial images of the gallbladder following oral graciela stion of Ensure. COMPARISON: None. FINDINGS: Hepatomegaly. Gallbladder is visualized by 20 minutes. No evidence of acute cholecystitis. Normal com mon bile duct and small bowel activity. Gallbladder ejection fraction 77% within normal limits. No evidence of chronic cholecystitis. NM/NM hepatobiliary w phar* [id number] IMPRESSION: 1. No evidence of acute or chronic cholecystitis. 2. Gallbladder ejection fraction 77% within normal limits.
== END 2021-11-13 08:48 | disposition home or self-care (01) ==
LOC: RAD 08:50
PROVIDERS: PCP Nurse Practitioner Family; Visit Provider Surgery
DX: R10.11 Right upper quadrant pain (principal)
CPT/HCPCS: 78227; A9537

== ENCOUNTER → 2021-11-17 09:28 | Outpatient (BNVA) | payer MEDICARE, MEDICAID, SELFPAY | PROVIDERS: PCP Nurse Practitioner Family; Visit Provider Surgery | DX: R10.11 Right upper quadrant pain (principal); Z86.010 Personal history of colon polyps; Z20.822 Contact with and (suspected) exposure to COVID-19 | CPT/HCPCS: 87635 ==

== ENCOUNTER 2021-11-24 06:49 | Day surgery (SDC) | payer MEDICARE, MEDICAID, SELFPAY ==
[2021-11-22 12:32] VITALS: BMI 34.6
--- NOTE | 2021-11-24 07:00 | ANES.PREANE2 ---
Pre-Anesthetic Assessment Height/Weight: Height 1.65 m Weight 94.347 kg Preop Diagnosis: upper gi symptoms Operation Date: 11/24/21 08:45 Proposed Procedures p EGD 49960/87345/z86.010/r10.11(Not Applicable) - Arnav Cedillo MD s Colonoscopy(Not Applicable) - Arnav Cedillo MD Familial anesthetic complications: None Was Beta Jessika taken within 24 hours: Yes Was Clonidine taken within 24 hours: N/A Last intake: > 8 hrs Social Tobacco and No alcohol Exam alert, oriented x 3, clear to auscultation bilaterally and regular rate & rhythm Airway Mallampati: Class II Dentition: other (no teeth) Pulmonary Chronic Obstructive Pulmonary Disease and Sleep Apnea pulmonary HTN CV/HEM Arrythmia and Hypertension None reported Hepatic None reported GI Gastroesophageal Reflux Disease Metabolic Diabetes Mellitus and Thyroid Disease Musc/skel Lower Back Pain Neuropsych None reported Anesthetic Plan ASA status: 3 Anesthesia: MAC Risk of > 500 ml blood loss (7ml/kg in children): No Medications/Allergies Home Medications Medication Instructions Recorded Confirmed Last Taken Type albuterol sulfate 2.5 mg (3 mL) INHALATION Q4H PRN 11/13/19 11/22/21 07/31/21 Rx #90 ml pen needle, diabetic 31 gauge x #4 each 02/15/20 11/22/21 07/31/21 Rx /16 (1st Tier Unifine Pentips Plus) blood sugar diagnostic (Blood #100 each 04/14/20 11/22/21 07/31/21 Rx Glucose Test) magnesium oxide 400 mg PO DAILY 09/06/20 11/22/21 07/31/21 History cholecalciferol (vitamin D3) 125 125 mcg PO DAILY #90 tab 05/31/21 11/22/21 07/31/21 Rx mcg (5,000 unit) tablet (Vitamin D3) omeprazole 20 mg capsule,delayed 20 mg PO DAILY #90 cap 06/28/21 11/22/21 07/31/21 Rx release blood glucose control, low (True #1 ea 07/17/21 11/22/21 07/31/21 Rx Metrix Level 1) duloxetine 60 mg capsule,delayed 60 mg PO DAILY 07/31/21 11/22/21 07/31/21 History release potassium chloride 8 mEq 8 meq PO DAILY 07/31/21 11/22/2107/31/21 History tablet,extended release docusate sodium 100 mg capsule 100 mg PO BID #60 cap 08/03/21 11/22/21 Unknown Rx ondansetron HCl 4 mg tablet 4 mg PO Q6H PRN #30 tab 08/03/21 11/22/21 Unknown Rx fenofibrate nanocrystallized 145 See Rx Instructions .ROUTE 08/09/21 11/22/21 Unknown Rx mg tablet .COMPLEX #90 tablet metoprolol succinate 25 mg 25 mg PO DAILY #90 tab 09/20/21 11/22/21 Unknown Rx tablet,extended release 24 hr metformin 500 mg tablet See Rx Instructions .ROUTE 10/02/21 11/22/21 Unknown Rx .COMPLEX #90 tab glipizide 10 mg tablet See Rx Instructions .ROUTE 10/16/21 11/22/21 Unknown Rx .COMPLEX #180 tab metformin 1,000 mg tablet See Rx Instructions .ROUTE 10/16/21 11/22/21 Unknown Rx .COMPLEX #180 tablet semaglutide (Ozempic) 0.25 mg (0.2 mL) SUBCUT .weekly 10/17/21 11/22/21 Unknown Rx #1.5 ml nitroglycerin 0.4 mg sublingual See Rx Instructions .ROUTE 10/23/21 11/22/21 Unknown Rx tablet .COMPLEX #25 tab tiotropium bromide 2.5 2 puff INHALATION DAILY #4 g 11/06/21 11/22/21 Unknown Rx mcg/actuation mist for inhalation (Spiriva Respimat) meloxicam 7.5 mg tablet See Rx Instructions .ROUTE 11/11/21 11/22/21 Unknown Rx .COMPLEX #30 tab albuterol sulfate 90 mcg/actuation See Rx Instructions .ROUTE 11/14/21 11/22/21 Unknown Rx aerosol inhaler .COMPLEX #1 ea duloxetine 30 mg capsule,delayed See Rx Instructions .ROUTE 11/15/21 11/22/21 Unknown Rx release .COMPLEX #90 cap ibuprofen 400 mg tablet (IBU) 400 mg PO Q8H PRN 11/22/21 11/22/21 Unknown History lovastatin 40 mg tablet 40 mg PO DAILY #90 tab 11/23/21 Unknown Rx Allergies Allergy/AdvReac Type Severity Reaction Status Date / Time codeine Allergy Severe ALGY-Anaphy Verified 11/22/21 12:17 laxis latex Allergy Mild ALGY-Rash Verified 11/22/21 12:17 Sulfa (Sulfonamide Allergy Mild ALGY-Redness Verified 11/22/21 12:17 Antibiotics) of Skin gabapentin Allergy ALGY-Redness Verified 11/22/21 12:17 of Skin PFSH Anesthesia Medical History GERD (gastroesophageal reflux disease) History of colon polyps Hyperlipidemia Lesion of spleen Symptomatic PVCs Vitamin D deficiency Surgical History History of colonoscopy with polypectomy 2019 History of D&C History of loop electrical excision procedure (LEEP) Hx of arthroscopy of left knee Hx of section Hx of tonsillectomy Hx of tubal ligation S/P laparoscopic assisted vaginal hysterectomy (LAVH) Family History Family/Other No problems noted. Mother CHF (congestive heart failure) COPD (chronic obstructive pulmonary disease) Diabetes Hyperlipidemia Hypertension Thyroid disease Grandmother CHF (congestive heart failure) Maternal COPD (chronic obstructive pulmonary disease) Maternal Diabetes Maternal Hyperlipidemia Maternal Hypertension Maternal Thyroid disease Maternal Denies family history of CAD (coronary artery disease) Clotting disorder Chronic kidney disease (CKD) Bleeding disorder Cancer Stroke Social History Smoking and tobacco status: current every day smoker Data Anesthesia Cardiac Studies: Echocardiogram 12/17/19 Echocardiogram Limited Views 01/04/21
[2021-11-24] MEDS: sodium chloride 0.9% 1,000 ML 30 ML IV (07:47)
[2021-11-24 07:50] VITALS: BP 122/75; PULSE 94; RESP 18; TEMP 36.2; O2SAT 95
--- NOTE | 2021-11-24 08:16 | P.HP_ITS ---
Same Day Surgery H&P Indication for Procedure/HPI DATE OF PROCEDURE: November 24, 2021 CHIEF COMPLAINT/INDICATIONFOR SURGICAL PROCEDURE: egd/colon for abdo pain/colon polyps PREOP DIAGNOSIS: upper gi symptoms PLANNED PROCEDURE: Operation Date: 11/24/21 08:45 Proposed Procedures p EGD 71500/54496/z86.010/r10.11(Not Applicable) - Arnav Cedillo MD s Colonoscopy(Not Applicable) - Arnav Cedillo MD Medications/Allergies* Home Medications Medication Instructions Recorded Confirmed Type magnesium oxide 400 mg PO DAILY 09/06/20 11/22/21 History duloxetine 60 mg capsule,delayed 90 mg PO DAILY 07/31/21 11/24/21 History release (Cymbalta) potassium chloride 8 mEq 8 meq PO DAILY 07/31/21 11/22/21 History tablet,extended release ibuprofen 400 mg tablet (IBU) 400 mg PO Q8H PRN 11/22/21 11/22/21 History Spiriva Respimat 2 puff INHALATION DAILY 11/24/21 11/24/21 History fenofibrate nanocrystallized 145 145 mg PO DAILY 11/24/21 11/24/21 History mg tablet (Tricor) glipizide 10 mg tablet 10 mg PO BID 11/24/21 11/24/21 History meloxicam 7.5 mg tablet 7.5 mg PO DAILY 11/24/21 11/24/21 History metformin 1,000 mg tablet 1,000 mg PO QPM 11/24/21 11/24/21 History metformin 500 mg tablet 1,500 mg PO QAM 11/24/21 11/24/21 History Allergies/Adverse Reactions Allergy/AdvReac Type Severity Reaction Status Date / Time codeine Allergy Severe ALGY-Anaphy Verified 11/22/21 12:17 laxis latex Allergy Mild ALGY-Rash Verified 11/22/21 12:17 Sulfa (Sulfonamide Allergy Mild ALGY-Redness Verified 11/22/21 12:17 Antibiotics) of Skin gabapentin Allergy ALGY-Redness Verified 11/22/21 12:17 of Skin Current Medications: Generic Name Dose Route Start Last Admin Trade Name Freq PRN Reason Stop Dose Admin Sodium Chloride 1,000 mls @ 30 mls/hr 11/24/21 07:00 11/24/21 07:47 Sodium Chloride 0.9% IV 11/25/21 06:59 30 mls/hr .Q24H MILENA Administration Pertinent History/Comorbid Conditions* Medical History (Updated 10/17/21 @ 13:15 by SHANI Trujillo) GERD (gastroesophageal reflux disease) History of colon polyps Hyperlipidemia Lesion of spleen Symptomatic PVCs Vitamin D deficiency Surgical History (Updated 10/03/21 @ 10:14 by Arnav Cedillo MD) History of colonoscopy with polypectomy 2018 History of D&C History of loop electrical excision procedure (LEEP) Hx of arthroscopy of left knee Hx of section Hx of tonsillectomy Hx of tubal ligation S/P laparoscopic assisted vaginal hysterectomy (LAVH) Family History (Updated 06/19/21 @ 14:51 by Chelle Murphy LPN) Diabetes Mother Grandmother Maternal CHF (congestive heart failure) Mother Grandmother Maternal Hyperlipidemia Mother Grandmother Maternal COPD (chronic obstructive pulmonary disease) Mother Grandmother Maternal Hypertension Mother Grandmother Maternal Thyroid disease Mother Grandmother Maternal Denies family history of CAD (coronary artery disease) Clotting disorder Chronic kidney disease (CKD) Bleeding disorder Cancer Stroke Social History Smoking and tobacco status: current every day smoker Pertinent Exam Findings alert, oriented x 3 and regular rate & rhythm Recommendations Surgery/Procedure today Coding Level of Care Code Acute Dealer Card Room for Malika Garland
[2021-11-24 09:49] VITALS: BP 116/72; PULSE 77; RESP 16; TEMP 36.1; O2SAT 96
[2021-11-24 09:58] VITALS: BP 122/85; PULSE 81; RESP 16; O2SAT 97
--- NOTE | 2021-11-24 12:44 | ANE.PACU2 ---
Inpatient post-anesthesia follow up: Airway intact: Yes Vital signs: Temperature 97.0 F Pulse Rate 81 Respiratory Rate 16 Blood Pressure 122/85 Pulse Oximetry 97 Oxygen Delivery Me thod Room Air Oxygen Flow Rate Fraction of Inspir ed Oxygen Hydration adequate: No Nausea and vomiting: No Pain level: 1 Mental status: Baseline
== END 2021-11-24 10:20 | disposition home or self-care (01) ==
PROVIDERS: PCP Nurse Practitioner Family; Visit Provider Surgery
PROC: 0DJ08ZZ Inspection of Upper Intestinal Tract, Via Natural or Artificial Opening Endoscopic (ICD-10-PCS; CPT 43235; principal; 2021-11-24 08:45)
PROC: 0DJD8ZZ Inspection of Lower Intestinal Tract, Via Natural or Artificial Opening Endoscopic (ICD-10-PCS; CPT 45378; 2021-11-24 08:45)
DX: Z86.010 Personal history of colon polyps (principal); R10.11 Right upper quadrant pain; K57.30 Diverticulosis of large intestine without perforation or abscess without bleeding; K64.8 Other hemorrhoids; K21.9 Gastro-esophageal reflux disease without esophagitis; E78.5 Hyperlipidemia, unspecified; J44.9 Chronic obstructive pulmonary disease, unspecified; G47.30 Sleep apnea, unspecified; I10 Essential (primary) hypertension; E11.9 Type 2 diabetes mellitus without complications; Z79.84 Long term (current) use of oral hypoglycemic drugs
CPT/HCPCS: 43235; 45378; J2704; J7030

== ENCOUNTER → 2021-12-01 09:04 | Outpatient (BNVA) | payer MEDICARE, MEDICAID, SELFPAY | PROVIDERS: PCP Nurse Practitioner Family; Visit Provider Internal Medicine Critical Care Medicine | DX: J42 Unspecified chronic bronchitis (principal); J98.4 Other disorders of lung; G47.33 Obstructive sleep apnea (adult) (pediatric); F17.210 Nicotine dependence, cigarettes, uncomplicated | CPT/HCPCS: 99214 ==

== ENCOUNTER 2021-12-27 14:10 | Outpatient (CLI) | payer MEDICARE, MEDICAID, SELFPAY ==
--- NOTE | 2021-12-27 14:18 | XR_ITS ---
WS: [email or web address] DEXA (DUAL ENERGY X-RAY ABSORPTIOMETRY) Bone mineral density was performed using a Gemmyo machine. HISTORY: M81.0 - Age-related osteoporosis without current pathological fracture COMPARISON: None available. Lumbar spine BMD (L1-L4): 1.438 g/cm2 T score: 2.1 Z score: 2.3 Total hip BMD: Left: 1.143 g/cm2. T score: 1.1 Z score: 1.2 Right: 1.181 g/cm2. T score: 1.4 Z score: 1.5 10 year probability of a major osteoporotic fracture is 9%. XR/XR DEXA axial skeleton* [id number] IMPRESSION: NORMAL BONE MINERAL DENSITY based upon the WHO classification for females.
== END 2021-12-27 14:11 | disposition home or self-care (01) ==
PROVIDERS: PCP Nurse Practitioner Family; Visit Provider Nurse Practitioner Family
DX: M81.0 Age-related osteoporosis without current pathological fracture (principal)
CPT/HCPCS: 77080

== ENCOUNTER → 2022-01-15 08:34 | Outpatient (BNVA) | payer MEDICARE, MEDICAID, SELFPAY | PROVIDERS: PCP Nurse Practitioner Family; Visit Provider Nurse Practitioner Family | DX: E55.9 Vitamin D deficiency, unspecified (principal); E04.1 Nontoxic single thyroid nodule; E78.5 Hyperlipidemia, unspecified; E11.65 Type 2 diabetes mellitus with hyperglycemia; I10 Essential (primary) hypertension | CPT/HCPCS: 80053; 80061; 82043; 82306; 83036; 84443 ==

== ENCOUNTER → 2022-04-16 09:07 | Outpatient (BNVA) | payer MEDICARE, MEDICAID, SELFPAY | PROVIDERS: PCP Nurse Practitioner Family; Visit Provider Nurse Practitioner Family | DX: E11.65 Type 2 diabetes mellitus with hyperglycemia (principal); I10 Essential (primary) hypertension; E78.5 Hyperlipidemia, unspecified; E03.9 Hypothyroidism, unspecified; E55.9 Vitamin D deficiency, unspecified | CPT/HCPCS: 80053; 80061; 83036 ==

== ENCOUNTER → 2022-05-11 11:01 | Outpatient (BNVA) | payer MEDICARE, MEDICAID, SELFPAY | PROVIDERS: PCP Nurse Practitioner Family; Visit Provider Podiatrist Foot & Ankle Surgery | DX: M19.072 Primary osteoarthritis, left ankle and foot (principal); M76.62 Achilles tendinitis, left leg; M79.672 Pain in left foot; B35.1 Tinea unguium; G62.9 Polyneuropathy, unspecified; L85.3 Xerosis cutis; E11.8 Type 2 diabetes mellitus with unspecified complications; Z79.4 Long term (current) use of insulin; Z79.84 Long term (current) use of oral hypoglycemic drugs | CPT/HCPCS: 11056; 11721; 73630; 99203 ==

== ENCOUNTER 2022-06-01 07:56 | Outpatient (CLI) | payer MEDICARE, MEDICAID, SELFPAY ==
--- NOTE | 2022-06-01 08:03 | MM_ITS ---
WS: [email or web address] VIEWS: MLO and CC views both breasts. 3D digital tomosynthesis is also included in this exam. Comparison made with prior exam of 03/22/2014, 05/28/2016, 05/31/2017, 03/03/2019, 05/25/2020, 05/29/2021.. Findings: There was no sign of mass, architectural distortion or suspicious calcification in either breast. Fa [place]ty MM/[place] [id number] Impression: BI-RADS: 2-Benign FOLLOW-UP: 1 Year Follow-up This mammogram was also analyzed by the Computer Aided Detection System R2 Imag e Sweatband Shaper.
== END 2022-06-01 07:57 | disposition home or self-care (01) ==
LOC: RAD 07:58
PROVIDERS: PCP Nurse Practitioner Family; Visit Provider Nurse Practitioner Family
DX: Z12.31 Encounter for screening mammogram for malignant neoplasm of breast (principal)
CPT/HCPCS: 77063; 77067

== ENCOUNTER 2022-06-05 08:22 | Outpatient (CLI) | payer MEDICARE, MEDICAID, SELFPAY ==
--- NOTE | 2022-06-05 08:31 | CT_ITS ---
WS: [email or web address] LDCT LUNG CANCER SCREENING HISTORY: Lung cancer screening TECHNIQUE: Axial imaging performed from the apices to 1 cm below the costophrenic angles. Coronal and sagittal reformats are submitted with axial MIP series. All CT scans at [facility] use at least one of these dose optimization techniques: automated exposure control; mA and/or kV adjustment per patient size (includes targeted exams where dose is matched to clinical indication); or iterativ e reconstruction. DLP: 71.80 mGy.cm DIvol: Mean CTDIvol: 1.60 (mGy) COMPARISON: 04/06/2021 Diagnostic quality: Satisfactory Lung Nodules: No pulmonary nodule or endobronchial lesion. Lungs: Mild hyperexpansion from emphysema. Heart: Normal size heart. No pericardial effusion. Other findings: Mild atherosclerosis aorta. No adenopathy. Mild hepatic steatosis. No hiatal hernia. CT/CT lung screening [id number] IMPRESSION: LUNG-RADS: 1-Negative FOLLOW UP: 12 Month: Continue annual screening with LDCT OTHER FINDINGS (S MODIFIER): None.
== END 2022-06-05 08:23 | disposition home or self-care (01) ==
LOC: RAD 08:22
PROVIDERS: PCP Nurse Practitioner Family; Visit Provider Internal Medicine Critical Care Medicine
DX: Z12.2 Encounter for screening for malignant neoplasm of respiratory organs (principal); F17.200 Nicotine dependence, unspecified, uncomplicated
CPT/HCPCS: 71271

== ENCOUNTER → 2022-06-06 09:57 | Outpatient (BNVA) | payer MEDICARE, MEDICAID, SELFPAY | PROVIDERS: PCP Nurse Practitioner Family; Visit Provider Internal Medicine Critical Care Medicine | DX: J42 Unspecified chronic bronchitis (principal); J98.4 Other disorders of lung; G47.33 Obstructive sleep apnea (adult) (pediatric); F17.210 Nicotine dependence, cigarettes, uncomplicated | CPT/HCPCS: 99214 ==

== ENCOUNTER → 2022-06-26 13:18 | Outpatient (BNVA) | payer MEDICARE, MEDICAID, SELFPAY | PROVIDERS: PCP Nurse Practitioner Family; Visit Provider Nurse Practitioner Family | DX: Z20.822 Contact with and (suspected) exposure to COVID-19 (principal); R30.0 Dysuria; N39.0 Urinary tract infection, site not specified; J20.8 Acute bronchitis due to other specified organisms; B96.89 Other specified bacterial agents as the cause of diseases classified elsewhere | CPT/HCPCS: 81000; 87077; 87086; 87184; 87426 ==

== ENCOUNTER → 2022-07-17 11:22 | Outpatient (BNVA) | payer MEDICARE, MEDICAID, SELFPAY | PROVIDERS: PCP Nurse Practitioner Family; Visit Provider Nurse Practitioner Family | DX: R31.9 Hematuria, unspecified (principal); N39.0 Urinary tract infection, site not specified; H66.90 Otitis media, unspecified, unspecified ear | CPT/HCPCS: 87086 ==

== ENCOUNTER → 2022-07-24 08:34 | Outpatient (BNVA) | payer MEDICARE, MEDICAID, SELFPAY | PROVIDERS: PCP Nurse Practitioner Family; Visit Provider Nurse Practitioner Family | DX: E11.65 Type 2 diabetes mellitus with hyperglycemia (principal); I10 Essential (primary) hypertension; N32.81 Overactive bladder | CPT/HCPCS: 80053; 83036; 84443 ==

== ENCOUNTER → 2022-08-10 09:43 | Outpatient (BNVA) | payer MEDICAID, SELFPAY | PROVIDERS: PCP Nurse Practitioner Family; Visit Provider Podiatrist Foot & Ankle Surgery | DX: B35.1 Tinea unguium (principal); G62.9 Polyneuropathy, unspecified; L85.3 Xerosis cutis; E11.8 Type 2 diabetes mellitus with unspecified complications; Z79.84 Long term (current) use of oral hypoglycemic drugs | CPT/HCPCS: 11056; 11721 ==

== ENCOUNTER → 2022-10-17 13:35 | Outpatient (BNVA) | payer MEDICARE, MEDICAID, SELFPAY | PROVIDERS: PCP Nurse Practitioner Family; Visit Provider Internal Medicine Cardiovascular Disease | DX: I49.3 Ventricular premature depolarization (principal); I10 Essential (primary) hypertension; F17.210 Nicotine dependence, cigarettes, uncomplicated | CPT/HCPCS: 99214; Q3014 ==

== ENCOUNTER → 2022-10-22 08:51 | Outpatient (BNVA) | payer MEDICARE, MEDICAID, SELFPAY | PROVIDERS: PCP Nurse Practitioner Family; Visit Provider Podiatrist Foot & Ankle Surgery | DX: B35.1 Tinea unguium (principal); G62.9 Polyneuropathy, unspecified; L85.3 Xerosis cutis; E11.8 Type 2 diabetes mellitus with unspecified complications; Z79.84 Long term (current) use of oral hypoglycemic drugs | CPT/HCPCS: 11721 ==

== ENCOUNTER → 2022-10-25 08:42 | Outpatient (BNVA) | payer MEDICARE, MEDICAID, SELFPAY | PROVIDERS: PCP Nurse Practitioner Family; Visit Provider Nurse Practitioner Family | DX: E11.65 Type 2 diabetes mellitus with hyperglycemia (principal); I10 Essential (primary) hypertension; E11.9 Type 2 diabetes mellitus without complications | CPT/HCPCS: 80053; 80061; 82043; 83036; 84443 ==

== ENCOUNTER → 2022-12-07 08:22 | Outpatient (BNVA) | payer MEDICARE, MEDICAID, SELFPAY | PROVIDERS: PCP Nurse Practitioner Family; Visit Provider Nurse Practitioner Family | DX: N39.0 Urinary tract infection, site not specified (principal) | CPT/HCPCS: 81000; 87077; 87086; 87184 ==

== ENCOUNTER → 2022-12-18 10:44 | Outpatient (BNVA) | payer MEDICARE, MEDICAID, SELFPAY | PROVIDERS: PCP Nurse Practitioner Family; Visit Provider Nurse Practitioner Family | DX: N39.0 Urinary tract infection, site not specified (principal) | CPT/HCPCS: 81000 ==

== ENCOUNTER → 2022-12-31 10:39 | Outpatient (BNVA) | payer MEDICARE, MEDICAID, SELFPAY | PROVIDERS: PCP Nurse Practitioner Family; Visit Provider Podiatrist Foot & Ankle Surgery | DX: E11.8 Type 2 diabetes mellitus with unspecified complications (principal); B35.1 Tinea unguium; G62.9 Polyneuropathy, unspecified; L85.3 Xerosis cutis; E11.42 Type 2 diabetes mellitus with diabetic polyneuropathy; Z79.84 Long term (current) use of oral hypoglycemic drugs | CPT/HCPCS: 11721 ==

== ENCOUNTER → 2023-01-24 08:40 | Outpatient (BNVA) | payer MEDICARE, MEDICAID, SELFPAY | PROVIDERS: PCP Nurse Practitioner Family; Visit Provider Nurse Practitioner Family | DX: I10 Essential (primary) hypertension (principal); E11.65 Type 2 diabetes mellitus with hyperglycemia; E55.9 Vitamin D deficiency, unspecified; E04.1 Nontoxic single thyroid nodule; E03.9 Hypothyroidism, unspecified | CPT/HCPCS: 80053; 82306; 83036; 84443 ==

== ENCOUNTER → 2023-02-08 11:32 | Outpatient (BNVA) | payer MEDICARE, MEDICAID, SELFPAY | PROVIDERS: PCP Nurse Practitioner Family; Visit Provider Internal Medicine Pulmonary Disease | DX: J42 Unspecified chronic bronchitis (principal); J98.4 Other disorders of lung; G47.33 Obstructive sleep apnea (adult) (pediatric); F17.210 Nicotine dependence, cigarettes, uncomplicated | CPT/HCPCS: 99214 ==

== ENCOUNTER 2023-02-14 14:27 | Outpatient (CLI) | payer MEDICARE, MEDICAID, SELFPAY ==
--- NOTE | 2023-02-14 15:00 | US_ITS ---
WS: [email or web address] Thyroid ultrasound, 02/14/2023 Clinical Data: E04.1 - Nontoxic single thyroid nodule Comparison: Thyroid ultrasound, 05/08/2021 Findings: The right lobe of thyroid measures 4.5 cm x 1.9 cm x 1.9 cm. The left lobe measures 5.2 cm x 2.1 cm x 2.3 cm. The isthmus measured 0.4 mm. The echotexture of the thyroid is mixed. Both lobes of the thyroid show numerous small nodules and cy sts.. US/US thyroid [id number] Impression: Multinodular goiter.
== END 2023-02-14 14:28 | disposition home or self-care (01) ==
LOC: RAD 14:35
PROVIDERS: PCP Nurse Practitioner Family; Visit Provider Nurse Practitioner Family
DX: E04.2 Nontoxic multinodular goiter (principal)
CPT/HCPCS: 76536

== ENCOUNTER → 2023-02-27 09:52 | Outpatient (BNVA) | payer MEDICARE, MEDICAID, SELFPAY | PROVIDERS: PCP Nurse Practitioner Family; Visit Provider Nurse Practitioner Family | DX: N39.0 Urinary tract infection, site not specified (principal); E11.65 Type 2 diabetes mellitus with hyperglycemia; R60.9 Edema, unspecified; E13.9 Other specified diabetes mellitus without complications; I10 Essential (primary) hypertension | CPT/HCPCS: 80053; 81000; 83036; 83880 ==

== ENCOUNTER → 2023-03-28 10:47 | Outpatient (BNVA) | payer MEDICARE, MEDICAID, SELFPAY | PROVIDERS: PCP Nurse Practitioner Family; Referring Provider Nurse Practitioner Family; Visit Provider Internal Medicine | DX: E11.65 Type 2 diabetes mellitus with hyperglycemia (principal); E07.9 Disorder of thyroid, unspecified; E04.2 Nontoxic multinodular goiter; E78.5 Hyperlipidemia, unspecified; Z79.84 Long term (current) use of oral hypoglycemic drugs | CPT/HCPCS: 99204 ==

== ENCOUNTER → 2023-05-01 09:36 | Outpatient (BNVA) | payer MEDICARE, MEDICAID, SELFPAY | PROVIDERS: PCP Nurse Practitioner Family; Visit Provider Nurse Practitioner Family | DX: R30.0 Dysuria (principal); N39.0 Urinary tract infection, site not specified; Z91.09 Other allergy status, other than to drugs and biological substances | CPT/HCPCS: 81000; 87077; 87086; 87184 ==

== ENCOUNTER → 2023-05-13 07:57 | Outpatient (BNVA) | payer MEDICARE, MEDICAID, SELFPAY | PROVIDERS: PCP Nurse Practitioner Family; Visit Provider Podiatrist Foot & Ankle Surgery | DX: B35.1 Tinea unguium (principal); G62.9 Polyneuropathy, unspecified; L85.3 Xerosis cutis; E11.65 Type 2 diabetes mellitus with hyperglycemia; E11.42 Type 2 diabetes mellitus with diabetic polyneuropathy; Z79.84 Long term (current) use of oral hypoglycemic drugs | CPT/HCPCS: 11721 ==

== ENCOUNTER 2023-05-15 07:46 | Outpatient (CLI) | payer MEDICARE, MEDICAID, SELFPAY ==
--- NOTE | 2023-05-15 08:04 | USCV_ITS ---
Rosalinad Roche Age: 57 Gender: F : 1965 Exam Date: 05/15/2023 08:12 Ordering Phys: Olivia GibbonsP-C NEON SIGN MAKER Technologist: MAHOGANY [place] [facility] [place] AAA Screening HISTORY: Diameter (cm) AP x Transverse x Length Velocity (cm/s) Waveform Prox Aorta: 2.30 x 2.29 x 60.90 Triphasic Mid Aorta: 1.61 x 1.86 x 56.70 Triphasic Distal Aorta: 1.66 x 2.08 x 50.70 Triphasic Right Iliac Prox: 1.54 x 1.93 x 68.00 Triphasic Left Iliac Prox: 1.24 x 1.74 x 80.60 Triphasic Stent Prox Landing x x Aneurysmal Sac Max x x Lt Lat Sac Dim Rt Lat Sac Dim Stent Dist Landing x x Right Iliac Stent x x Left Iliac Stent x x Right Renal Art Left Renal Art FINDINGS: Comparison: none avano evidence of abdominal aortic or bilateral iliac aneurysm. Atherosclerotic plaque is noted in the abdominal aorta. ilable. CONCLUSIONS No evidence of abdominal aortic or bilateral iliac aneurysm. Dr. Kim Bullard DO (Electronically Signed) Final Date: 15 May 2023 08:43 S
--- NOTE | 2023-05-15 09:00 | CT_ITS ---
WS: [email or web address] LDCT LUNG CANCER SCREENING HISTORY: Cancer Screen TECHNIQUE: Axial imaging performed from the apices to 1 cm below the costophrenic angles. Coronal and sagittal reformats are submitted with axial MIP series. All CT scans at [facility] use at least one of these dose optimization techniques: automated exposure control; mA and/or kV adjustment per patient size (includes targeted exams where dose is matched to clinical indication); or iterativ e reconstruction. DLP: 105.29 mGy.cm DIvol: Mean CTDIvol: 2.40 (mGy) COMPARISON: 06/05/2022 Diagnostic quality: Satisfactory Lungs: No pulmonary mass or nodule. Mild centrilobular emphysema. No endobronchial lesions. Heart: Normal size heart with no pericardial effusion.. Mild coronary artery calcification. Other findings: Mildly dilated pulmonary artery. Normal size heart. Minimal coronary artery calcifica tions. Small hiatal hernia. No adrenal masses visualized. No mediastinal or hilar adenopathy. Mild th oracic spondylosis. Hepatic steatosis. IMPRESSION: CT/CT lung screening [id number] LUNG-RADS: 1-Negative FOLLOW UP: 12 Month: Continue annual screening with LDCT OTHER FINDINGS (S MODIFIER): None.
== END 2023-05-15 07:47 | disposition home or self-care (01) ==
PROVIDERS: PCP Nurse Practitioner Family; Visit Provider Nurse Practitioner Family
DX: Z12.2 Encounter for screening for malignant neoplasm of respiratory organs (principal); F17.210 Nicotine dependence, cigarettes, uncomplicated; Z13.6 Encounter for screening for cardiovascular disorders; J44.9 Chronic obstructive pulmonary disease, unspecified
CPT/HCPCS: 71271; 93978

== ENCOUNTER 2023-06-05 08:34 | Outpatient (CLI) | payer MEDICARE, MEDICAID, SELFPAY ==
--- NOTE | 2023-06-05 08:50 | MM_ITS ---
WS: [email or web address] BILATERAL SCREENING DIGITAL TOMOSYNTHESIS MAMMOGRAM WITH CAD HISTORY: SCREENING COMPARISON: 06/01/2022, 05/29/2021 Bilateral CC and MLO views with tomosynthesis and synthetic mammography submitted. Computer aided det ection analyzed. Breast composition: There are scattered areas of fibroglandular density. No suspicious masses, microc alcifications or architectural distortion. Benign scattered calcifications in each breast IMPRESSION: MM/[place] [id number] BI-RADS: 2-Benign FOLLOW UP: 1 Year Follow-up
== END 2023-06-05 08:35 | disposition home or self-care (01) ==
PROVIDERS: PCP Nurse Practitioner Family; Visit Provider Nurse Practitioner Family
DX: Z12.31 Encounter for screening mammogram for malignant neoplasm of breast (principal)
CPT/HCPCS: 77063; 77067

== ENCOUNTER → 2023-06-28 08:23 | Outpatient (BNVA) | payer MEDICARE, MEDICAID, SELFPAY | PROVIDERS: PCP Nurse Practitioner Family; Visit Provider Internal Medicine | DX: E11.9 Type 2 diabetes mellitus without complications (principal) | CPT/HCPCS: 80053; 80061; 83036 ==

== ENCOUNTER → 2023-07-19 09:21 | Outpatient (BNVA) | payer MEDICAID, SELFPAY | PROVIDERS: PCP Nurse Practitioner Family; Visit Provider Podiatrist Foot & Ankle Surgery | DX: B35.1 Tinea unguium (principal); G62.9 Polyneuropathy, unspecified; L85.3 Xerosis cutis; E11.65 Type 2 diabetes mellitus with hyperglycemia; E11.42 Type 2 diabetes mellitus with diabetic polyneuropathy; Z79.84 Long term (current) use of oral hypoglycemic drugs | CPT/HCPCS: 11721 ==

== ENCOUNTER → 2023-09-26 08:02 | Outpatient (BNVA) | payer MEDICAID, SELFPAY | PROVIDERS: PCP Nurse Practitioner Family; Visit Provider Internal Medicine | DX: E11.9 Type 2 diabetes mellitus without complications (principal) | CPT/HCPCS: 80053; 80061; 82043; 83036 ==

== ENCOUNTER → 2023-10-07 08:57 | Outpatient (BNVA) | payer MEDICARE, MEDICAID, SELFPAY | PROVIDERS: PCP Nurse Practitioner Family; Visit Provider Podiatrist Foot & Ankle Surgery | DX: B35.1 Tinea unguium (principal); G62.9 Polyneuropathy, unspecified; L85.3 Xerosis cutis; E11.65 Type 2 diabetes mellitus with hyperglycemia; E11.42 Type 2 diabetes mellitus with diabetic polyneuropathy; Z79.84 Long term (current) use of oral hypoglycemic drugs | CPT/HCPCS: 11721 ==

== ENCOUNTER → 2023-10-08 09:43 | Outpatient (BNVA) | payer MEDICARE, MEDICAID, SELFPAY | PROVIDERS: PCP Nurse Practitioner Family; Visit Provider Internal Medicine | DX: E07.9 Disorder of thyroid, unspecified (principal); E04.2 Nontoxic multinodular goiter; E78.5 Hyperlipidemia, unspecified; E11.65 Type 2 diabetes mellitus with hyperglycemia; Z79.84 Long term (current) use of oral hypoglycemic drugs; Z79.85 Long-term (current) use of injectable non-insulin antidiabetic drugs | CPT/HCPCS: 83516; 84439; 84443; 84480; 86376; 86800; 99214 ==

== ENCOUNTER → 2023-11-13 08:57 | Outpatient (BNVA) | payer MEDICARE, MEDICAID, SELFPAY | PROVIDERS: PCP Nurse Practitioner Family; Visit Provider Nurse Practitioner Family | DX: L82.0 Inflamed seborrheic keratosis (principal); F42.4 Excoriation (skin-picking) disorder; D69.2 Other nonthrombocytopenic purpura; D22.5 Melanocytic nevi of trunk; L82.1 Other seborrheic keratosis; L57.8 Other skin changes due to chronic exposure to nonionizing radiation | CPT/HCPCS: 17110; 99213 ==

== ENCOUNTER → 2023-12-09 08:36 | Outpatient (BNVA) | payer MEDICARE, MEDICAID, SELFPAY | PROVIDERS: PCP Nurse Practitioner Family; Visit Provider Podiatrist Foot & Ankle Surgery | DX: B35.1 Tinea unguium (principal); G62.9 Polyneuropathy, unspecified; L85.3 Xerosis cutis; E11.65 Type 2 diabetes mellitus with hyperglycemia; Z79.84 Long term (current) use of oral hypoglycemic drugs | CPT/HCPCS: 11721 ==

== ENCOUNTER → 2023-12-31 08:51 | Outpatient (BNVA) | payer MEDICARE, MEDICAID, SELFPAY | PROVIDERS: PCP Nurse Practitioner Family; Visit Provider Nurse Practitioner Family | DX: E13.9 Other specified diabetes mellitus without complications (principal); E78.5 Hyperlipidemia, unspecified; E07.9 Disorder of thyroid, unspecified; E04.2 Nontoxic multinodular goiter | CPT/HCPCS: 80061; 83036; 84439; 84443; 84480 ==

== ENCOUNTER → 2024-01-09 09:27 | Outpatient (BNVA) | payer MEDICARE, MEDICAID, SELFPAY | PROVIDERS: PCP Nurse Practitioner Family; Visit Provider Internal Medicine | DX: E11.65 Type 2 diabetes mellitus with hyperglycemia (principal); E07.9 Disorder of thyroid, unspecified; E04.2 Nontoxic multinodular goiter; E78.5 Hyperlipidemia, unspecified; Z79.84 Long term (current) use of oral hypoglycemic drugs; Z79.85 Long-term (current) use of injectable non-insulin antidiabetic drugs | CPT/HCPCS: 99214 ==

== ENCOUNTER → 2024-02-07 10:32 | Outpatient (BNVA) | payer MEDICARE, MEDICAID, SELFPAY | PROVIDERS: PCP Nurse Practitioner Family; Visit Provider Podiatrist Foot & Ankle Surgery | DX: B35.1 Tinea unguium (principal); G62.9 Polyneuropathy, unspecified; L85.3 Xerosis cutis; E11.65 Type 2 diabetes mellitus with hyperglycemia; Z79.84 Long term (current) use of oral hypoglycemic drugs | CPT/HCPCS: 11721 ==

== ENCOUNTER → 2024-02-17 09:48 | Outpatient (BNVA) | payer MEDICARE, MEDICAID, SELFPAY | PROVIDERS: PCP Nurse Practitioner Family; Visit Provider Internal Medicine Cardiovascular Disease | DX: I49.3 Ventricular premature depolarization (principal); E78.5 Hyperlipidemia, unspecified; I10 Essential (primary) hypertension; E11.65 Type 2 diabetes mellitus with hyperglycemia; F17.210 Nicotine dependence, cigarettes, uncomplicated; Z79.84 Long term (current) use of oral hypoglycemic drugs | CPT/HCPCS: 99214 ==

== ENCOUNTER → 2024-02-27 08:26 | Outpatient (BNVA) | payer MEDICARE, MEDICAID, SELFPAY | PROVIDERS: PCP Nurse Practitioner Family; Visit Provider Internal Medicine Pulmonary Disease | DX: J44.9 Chronic obstructive pulmonary disease, unspecified (principal); J98.4 Other disorders of lung; G47.33 Obstructive sleep apnea (adult) (pediatric); F17.200 Nicotine dependence, unspecified, uncomplicated; T78.40XA Allergy, unspecified, initial encounter; X58.XXXA Exposure to other specified factors, initial encounter; R06.02 Shortness of breath | CPT/HCPCS: 36415; 82785; 86003; 99214 ==

== ENCOUNTER → 2024-04-01 08:35 | Outpatient (BNVA) | payer MEDICARE, MEDICAID, SELFPAY | PROVIDERS: PCP Nurse Practitioner Family; Visit Provider Nurse Practitioner Family | DX: I10 Essential (primary) hypertension (principal); E11.65 Type 2 diabetes mellitus with hyperglycemia | CPT/HCPCS: 80053; 80061; 83036; 84443 ==

== ENCOUNTER 2024-05-01 09:11 | Outpatient (CLI) | payer MEDICARE, MEDICAID, SELFPAY ==
--- NOTE | 2024-05-01 09:30 | MM_ITS ---
WS: [email or web address] Bilateral screening 3D tomosynthesis digital mammogram, 05/01/2024 Clinical Data: Z12.39 - Encounter for other screening for malignant neop... Comparison: 06/05/2023, 06/01/2022, 05/29/2021, 05/25/2020, 03/03/2019, 05/31/2017, 05/28/2016, 03/22/2014. Findings: The breast parenchymal pattern shows fibroglandular tissue. No spiculated masses or clustered calcifi cations are seen. There are no secondary signs of carcinoma. There are scattered benign calcification s in both breasts. There are small lymph nodes in both axilla. MM/[place] [id number] Impression: 1. Negative bilateral mammogram unchanged. 2. Recommend annual screening mammograms. BIRADS: 1-Negative FOLLOW UP: 1 Year Follow-up The CAD photo checker was used.
== END 2024-05-01 09:12 | disposition home or self-care (01) ==
LOC: RAD 09:12
PROVIDERS: PCP Nurse Practitioner Family; Visit Provider Nurse Practitioner Family
DX: Z12.31 Encounter for screening mammogram for malignant neoplasm of breast (principal); R92.323 Mammographic fibroglandular density, bilateral breasts; R92.1 Mammographic calcification found on diagnostic imaging of breast
CPT/HCPCS: 77063; 77067

== ENCOUNTER → 2024-05-08 10:10 | Outpatient (BNVA) | payer MEDICARE, MEDICAID, SELFPAY | PROVIDERS: PCP Nurse Practitioner Family; Visit Provider Podiatrist Foot & Ankle Surgery | DX: B35.1 Tinea unguium (principal); G62.9 Polyneuropathy, unspecified; L85.3 Xerosis cutis; E11.65 Type 2 diabetes mellitus with hyperglycemia; E11.42 Type 2 diabetes mellitus with diabetic polyneuropathy; Z79.84 Long term (current) use of oral hypoglycemic drugs | CPT/HCPCS: 11721 ==

== ENCOUNTER 2024-05-25 10:48 | Outpatient (CLI) | payer MEDICARE, MEDICAID, SELFPAY ==
--- NOTE | 2024-05-25 11:15 | CT_ITS ---
WS: [email or web address] LDCT LUNG CANCER SCREENING HISTORY: F17.200 - Nicotine dependence, unspecified, uncomplicated TECHNIQUE: Axial imaging performed from the apices to 1 cm below the costophrenic angles. Coronal and sagittal reformats are submitted with axial MIP series. All CT scans at [facility] use at least one of these dose optimization techniques: automated exposure control; mA and/or kV adjustment per patient size (includes targeted exams where dose is matched to clinical indication); or iterativ e reconstruction. DLP: 94.91 mGy.cm DIvol: Mean CTDIvol: 2.30 (mGy) COMPARISON: 05/15/2023 Diagnostic quality: Satisfactory Lungs: Mild pulmonary hyperinflation. There are a few very small, micronodules in the periphery of th e upper and lower lung chao which are slightly better seen today probably due to small volume avera ging. There is no suspicious mass. No nodule for which follow-up should be obtained. No endobronchial lesions. Heart: Normal size heart with no pericardial effusion.. Other findings: Mild atherosclerosis aorta. Dilated pulmonary artery. No mediastinal or hilar adenopa thy. LEFT thyroid lobe is slightly larger than the RIGHT. Visualized upper abdomen is negative. Osteo penia. CT/CT lung screening [id number] IMPRESSION: LUNG-RADS: 2-Benign Appearance or Behavior FOLLOW UP: 12 Month: Continue annual screening with LDCT OTHER FINDINGS (S MODIFIER): None.
== END 2024-05-25 10:49 | disposition home or self-care (01) ==
LOC: RAD 10:48
PROVIDERS: PCP Nurse Practitioner Family; Visit Provider Nurse Practitioner Family
DX: Z12.2 Encounter for screening for malignant neoplasm of respiratory organs (principal); F17.200 Nicotine dependence, unspecified, uncomplicated; R91.8 Other nonspecific abnormal finding of lung field; M85.80 Other specified disorders of bone density and structure, unspecified site
CPT/HCPCS: 71271; 80053; 80061; 83036; 84443

== ENCOUNTER → 2024-06-15 11:15 | Outpatient (BNVA) | payer MEDICARE, MEDICAID, SELFPAY | PROVIDERS: PCP Nurse Practitioner Family; Visit Provider Nurse Practitioner Family | DX: R39.9 Unspecified symptoms and signs involving the genitourinary system (principal) | CPT/HCPCS: 81000; 87086 ==

== ENCOUNTER 2024-06-17 06:36 | Outpatient (CLI) | payer MEDICARE, MEDICAID, SELFPAY ==
--- NOTE | 2024-06-17 07:17 | XR_ITS ---
WS: [email or web address] LEFT SHOULDER: 2 VIEW(S) TECHNIQUE: Internal and external rotation. HISTORY: M25.512 - Pain in left shoulder COMPARISON: None available. No fracture or dislocation or soft tissue abnormality. Mild AC joint narrowing. There is small erosions involving the distal clavicle. Visualized ribs and LEFT upper lobe are normal. XR/XR shoulder LT min 2V* [id number] IMPRESSION: 1. Mild AC joint arthropathy. 2. Otherwise negative.
== END 2024-06-17 06:37 | disposition home or self-care (01) ==
PROVIDERS: PCP Nurse Practitioner Family; Visit Provider Nurse Practitioner Family
DX: M25.512 Pain in left shoulder (principal)
CPT/HCPCS: 73030

== ENCOUNTER → 2024-07-02 08:04 | Outpatient (BNVA) | payer MEDICARE, MEDICAID, SELFPAY | PROVIDERS: PCP Nurse Practitioner Family; Visit Provider Nurse Practitioner Family | DX: E55.9 Vitamin D deficiency, unspecified (principal); I10 Essential (primary) hypertension; E11.65 Type 2 diabetes mellitus with hyperglycemia; E78.5 Hyperlipidemia, unspecified; E07.9 Disorder of thyroid, unspecified; E04.2 Nontoxic multinodular goiter; E03.9 Hypothyroidism, unspecified | CPT/HCPCS: 80053; 80061; 82043; 82306; 83036; 84443 ==

== ENCOUNTER → 2024-07-06 09:24 | Outpatient (BNVA) | payer MEDICARE, MEDICAID, SELFPAY | PROVIDERS: PCP Nurse Practitioner Family; Visit Provider Internal Medicine | DX: E11.65 Type 2 diabetes mellitus with hyperglycemia (principal); E78.5 Hyperlipidemia, unspecified; Z79.84 Long term (current) use of oral hypoglycemic drugs; Z79.85 Long-term (current) use of injectable non-insulin antidiabetic drugs | CPT/HCPCS: 99214 ==

== ENCOUNTER → 2024-07-23 08:29 | Outpatient (BNVA) | payer MEDICARE, MEDICAID, SELFPAY | PROVIDERS: PCP Nurse Practitioner Family; Visit Provider Podiatrist Foot & Ankle Surgery | DX: B35.1 Tinea unguium (principal); L85.3 Xerosis cutis; E11.65 Type 2 diabetes mellitus with hyperglycemia; G62.9 Polyneuropathy, unspecified; E11.42 Type 2 diabetes mellitus with diabetic polyneuropathy; Z79.84 Long term (current) use of oral hypoglycemic drugs | CPT/HCPCS: 11721 ==

== ENCOUNTER → 2024-09-24 09:03 | Outpatient (BNVA) | payer MEDICARE, MEDICAID, SELFPAY | PROVIDERS: PCP Nurse Practitioner Family; Visit Provider Nurse Practitioner Family | DX: R30.0 Dysuria (principal); N39.0 Urinary tract infection, site not specified | CPT/HCPCS: 81000; 87086 ==

== ENCOUNTER → 2024-10-01 07:26 | Outpatient (BNVA) | payer MEDICARE, MEDICAID, SELFPAY | PROVIDERS: PCP Nurse Practitioner Family; Visit Provider Podiatrist Foot & Ankle Surgery | DX: B35.1 Tinea unguium (principal); L85.3 Xerosis cutis; E11.65 Type 2 diabetes mellitus with hyperglycemia; G62.9 Polyneuropathy, unspecified; Z79.84 Long term (current) use of oral hypoglycemic drugs | CPT/HCPCS: 11056; 11721 ==

== ENCOUNTER → 2024-10-06 08:42 | Outpatient (BNVA) | payer MEDICARE, MEDICAID, SELFPAY | PROVIDERS: PCP Nurse Practitioner Family; Visit Provider Nurse Practitioner Family | DX: N30.00 Acute cystitis without hematuria (principal) | CPT/HCPCS: 81000 ==

== ENCOUNTER → 2024-12-01 06:47 | Outpatient (BNVA) | payer MEDICARE, MEDICAID, SELFPAY | PROVIDERS: PCP Family Medicine; Visit Provider Podiatrist Foot & Ankle Surgery | DX: E11.65 Type 2 diabetes mellitus with hyperglycemia (principal); B35.1 Tinea unguium; L85.3 Xerosis cutis; G62.9 Polyneuropathy, unspecified; Z79.84 Long term (current) use of oral hypoglycemic drugs | CPT/HCPCS: 11055; 11721 ==

== ENCOUNTER → 2025-02-12 08:59 | Outpatient (BNVA) | payer MEDICARE, MEDICAID, SELFPAY | PROVIDERS: PCP Family Medicine; Visit Provider Internal Medicine | DX: E11.65 Type 2 diabetes mellitus with hyperglycemia (principal); E78.5 Hyperlipidemia, unspecified | CPT/HCPCS: 99214 ==

== ENCOUNTER → 2025-02-16 11:59 | Outpatient (BNVA) | payer MEDICARE, MEDICAID, SELFPAY | PROVIDERS: PCP Family Medicine; Visit Provider Internal Medicine Cardiovascular Disease | DX: I49.3 Ventricular premature depolarization (principal); E78.5 Hyperlipidemia, unspecified; I10 Essential (primary) hypertension; E11.65 Type 2 diabetes mellitus with hyperglycemia; Z79.84 Long term (current) use of oral hypoglycemic drugs; Z79.85 Long-term (current) use of injectable non-insulin antidiabetic drugs; F17.200 Nicotine dependence, unspecified, uncomplicated; R07.9 Chest pain, unspecified; R00.2 Palpitations; R55 Syncope and collapse | CPT/HCPCS: 93005; 99214 ==

== ENCOUNTER → 2025-02-17 10:05 | Outpatient (BNVA) | payer MEDICARE, MEDICAID, SELFPAY | PROVIDERS: PCP Family Medicine; Visit Provider Podiatrist Foot & Ankle Surgery | DX: E11.65 Type 2 diabetes mellitus with hyperglycemia (principal); B35.1 Tinea unguium; L85.3 Xerosis cutis; G62.9 Polyneuropathy, unspecified; E11.42 Type 2 diabetes mellitus with diabetic polyneuropathy; Z79.84 Long term (current) use of oral hypoglycemic drugs | CPT/HCPCS: 11721 ==

== ENCOUNTER 2025-04-07 09:23 | Outpatient (CLI) | payer MEDICARE, MEDICAID, SELFPAY ==
--- NOTE | 2025-04-07 | ECG_ITS ---
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 Interpretive Statements Lung unchanged pre/post procedure; Intraprocedure shortess of breath; Symptoms resoled by discharge PROCEDURE: At the baseline, the EKG revealed sinus rhythm with a old septal ME. Diffuse nonspecific ST-T changes. The baseline heart was 78 bpm with a blood pressue of 139/99 mm of Hg Lexiscan was infused over a period of 20 seconds. A total of 0.4 milligrams of Lexiscan was infused. The stress phase was continued for a total of 5 minutes. Heart rate at the end of the stress phase was 92 bpm with a blood pressure 131/78 mm of Hg. The EKG at the peak infusion revealed nonspecific T changes and occasional PVCs. Sestamibi was injected 20 seconds after the Lexiscan infusion. Heart rate at the end of the recovery phase was 87 bpm with a blood pressure of 131/70 mm of Hg. CONCLUSION: 1. No significant EKG changes with the LexiScan infusion 2. No LexiScan induced chest pain or cardiac arrhythmia 3. Normal blood pressure and heart rate response 4. Sestamibi/sestamibi perfusion scan pending; see separate report. Electronically Signed On 04-11-2025 21:53:32 CDT by Jose Francisco Decker M.D. [email or web address]
[2025-04-07 09:44] VITALS: BMI 31.6
--- NOTE | 2025-04-07 10:23 | NMCV_ITS ---
NM darrius perf SPECT r/s* [id number] Rosalinda Roche Age: 59 Gender: F : 1965 Exam Date: 04/07/2025 10:25 Ordering Phys: Jose Francisco Decker MD ([email or web address]) Technologist: FAHAD Dahl Exam Location: [facility] Indications: cp STRESS TEST Please [facility] for [facility] IMAGE PROTOCOL Rest/Stress 1 Lexiscan Day Radiopharmaceutical Dose (mCi) Administration Site Administered by Rest: Tc-99m 10.6 IV Radha Cristina [employer] Sestamibi Stress:Tc-99m 32.9 IV Radha Cristina, [employer] Sestamibi Rest: 07-Apr-2025 60 Discovery 630 Stress: 07-Apr-2025 30 Discovery 630 0.4mg Lexiscan. Images obtained in supine and prone position. SPECT RESULTS Technical Quality: Good Raw Data Analysis: Normal Image Corrections: No attenuation or motion correction applied Summed Stress Score: 4 Summed Rest Score: 2 Summed Difference Score: 3 PERFUSION FINDINGS Small area of minimal to moderate decrease tracer uptake involving the mid and apical inferior , and LV apex. Some reversibility was noted in the apical inferior and LV apex. FUNCTIONAL RESULTS (calculated via Gated SPECT) Stress Image LV EF (%): 68 Stress EDV (mL):114 TID: 1.34 Stress ESV (mL):37 FUNCTIONAL FINDINGS: Several wall motion analysis revealing no gross wall motion abnormalities. The transient ischemic dilatation ratio was 1.34 IMPRESSIONS 1. Myocardial perfusion imaging revealing small area of minimal to moderate decrease tracer uptake involving the mid and apical inferior and LV apex with some reversibility suggesting myocardial scarring with ischemia in the distribution of the right coronary artery. 2. Normal LV ejection fraction 68%. 3. LV wall motion analysis revealing no gross wall motion abnormalities. 4. Normal LV volume 5. Elevated transischemic dilatation ratio 1.34 also may suggest endocardial ischemia Compared to the study from 12/09/2018, the area of ischemia appears to be in a different coronary artery territory. Dr Jose Francisco Decker MD [facility] (Electronically Signed) Final Date: 07 April 2025 14:16 S
[2025-04-07 11:50] VITALS: BP 133/74; PULSE 73
== END 2025-04-07 09:24 | disposition home or self-care (01) ==
LOC: CDL 09:25
PROVIDERS: PCP Family Medicine; Visit Provider Internal Medicine Cardiovascular Disease
DX: R07.9 Chest pain, unspecified (principal); R93.1 Abnormal findings on diagnostic imaging of heart and coronary circulation
CPT/HCPCS: 36415; 78452; 93017; 96374; A9500; J2785

== ENCOUNTER → 2025-04-21 10:26 | Outpatient (BNVA) | payer MEDICARE, MEDICAID, SELFPAY | PROVIDERS: PCP Family Medicine; Visit Provider Podiatrist Foot & Ankle Surgery | DX: E11.65 Type 2 diabetes mellitus with hyperglycemia (principal); B35.1 Tinea unguium; L85.3 Xerosis cutis; G62.9 Polyneuropathy, unspecified; Z79.84 Long term (current) use of oral hypoglycemic drugs | CPT/HCPCS: 11721 ==

== ENCOUNTER 2025-05-03 09:20 | Outpatient (CLI) | payer MEDICARE, MEDICAID, SELFPAY ==
--- NOTE | 2025-05-03 09:26 | MM_ITS ---
WS: [id number] BILATERAL SCREENING DIGITAL TOMOSYNTHESIS MAMMOGRAM WITH CAD HISTORY: SCREENING COMPARISON: 05/01/2024, 06/05/2023 Bilateral CC and MLO views with tomosynthesis and synthetic mammography submitted. Computer aided detection analyzed. Breast composition: There are scattered areas of fibroglandular density. No suspicious masses, microcalcifications or architectural distortion. Benign calcifications in each breast. MM/MM scr BI tomosynthesis [id number] IMPRESSION: BI-RADS: 2 - Benign. FOLLOW UP: 1 Year Follow-up
== END 2025-05-03 09:21 | disposition home or self-care (01) ==
LOC: RAD 09:21
PROVIDERS: PCP Family Medicine; Visit Provider Family Medicine
DX: R00.2 Palpitations (principal); R07.9 Chest pain, unspecified; I10 Essential (primary) hypertension; E78.5 Hyperlipidemia, unspecified; I49.3 Ventricular premature depolarization; E11.9 Type 2 diabetes mellitus without complications; Z79.84 Long term (current) use of oral hypoglycemic drugs; Z79.85 Long-term (current) use of injectable non-insulin antidiabetic drugs; Z87.891 Personal history of nicotine dependence
CPT/HCPCS: 77063; 77067; 99214

== ENCOUNTER → 2025-07-08 09:53 | Outpatient (BNVA) | payer MEDICARE, MEDICAID, SELFPAY | PROVIDERS: PCP Family Medicine; Visit Provider Podiatrist Foot & Ankle Surgery | DX: E11.65 Type 2 diabetes mellitus with hyperglycemia (principal); B35.1 Tinea unguium; E11.8 Type 2 diabetes mellitus with unspecified complications; L85.3 Xerosis cutis; G62.9 Polyneuropathy, unspecified; Z79.84 Long term (current) use of oral hypoglycemic drugs; Z79.85 Long-term (current) use of injectable non-insulin antidiabetic drugs | CPT/HCPCS: 11721; 99213 ==

== ENCOUNTER 2025-08-30 05:34 | Outpatient (CLI) | payer MEDICARE, MEDICAID, SELFPAY ==
[2025-08-30] VITALS (12 sets, daily range): BP systolic 103–124; BP diastolic 45–75; PULSE 74–87; RESP 16–22; TEMP 36.8; O2SAT 92–96; BMI 30.9
[2025-08-30 06:20] LABS: Hematocrit 42.5 % (36-47); Hemoglobin 14.10 g/dL (11.27-16.99); Mean Corpuscular HGB Conc 33.2 g/dL (30-55); Mean Corpuscular Hemoglobin 30.2 pg (27-33); Mean Corpuscular Volume 91.0 fl (85-98); Nucleated Red Blood Cells % 0 %; Platelet Count 274 10^3/cmm (157-399); Red Blood Count 4.67 10^6/uL (3.85-5.65); White Blood Count 6.48 10^3/uL (3.29-11.43)
[2025-08-30 06:40] LABS: Anion Gap 11.1 (5-19); Blood Urea Nitrogen 18 mg/dL (8-23); Calcium 9.5 mg/dL (8.5-10.5); Carbon Dioxide 30 mmol/L (22-29); Chloride 104 mmol/L (98-107); Glucose 148 mg/dL (65-115); Osmolality Calculated 297 mOsm/kg (285-295); Potassium 4.1 mmol/L (3.5-5.1); Sodium 141 mmol/L (136-145)
--- NOTE | 2025-08-30 07:23 | PM.HP ---
Providers/Chief Complaint Admitting Physician: CLARIBEL Decker MD Primary Care Provider: Mamadou Fox Chief Complaint: R07.9 History of Present Illness Rosalinda Roche is a 60 year old female with a history of hypertension, diabetes, dyslipidemia, supraventricular arrhythmia, nonsustained ventricular tachycardia and a family history of atherosclerotic heart diseas, he is present with complaints of chest tightness/dyspnea on exertion, increasing palpitations and fatigue. She had a Myocardial perfusion imaging which revealed a small area of ischemia in the distribution of the right coronary artery. In view of her ongoing symptoms, in order to further evaluate the coronary status, a cardiac catheterization was recommended. Review of Systems Narrative: CONSTITUTIONAL: Fatigue and dyspnea on exertion as mentioned above EYES: No blurring of vision or other visual disturbances lately. ENT: No hoarseness of voice, auditory disturbances or sore throat. CARDIOVASCULAR: As mentioned above. RESPIRATORY: History of sleep apnea and on CPAP GASTROINTESTINAL: No hematemesis or melena. GENITOURINARY: No dysuria or hematuria. INTEGUMENTARY: No skin rashes or history of skin cancer. NEURO: No transient ischemic attacks or amaurosis. PSYCHIATRIC: No history of psychosis or major depression. HEMATOLOGIC: No bleeding disorders or significant anemia. ENDOCRINE: No history of polyuria or polydipsia. MUSCULOSKELETAL: No recent joint pain or swelling. ALLERGY/IMMUNOLOGY: As mentioned above. Medications/Allergies Home Medications ?Medication ?Instructions ?Recorded ?Confirmed ?Last Taken ?Type magnesium oxide 400 mg PO DAILY 09/06/20 08/25/25 08/29/25 History docusate sodium 100 mg capsule 100 mg PO BID #60 caps 08/03/21 08/25/25 08/29/25 Rx diabetic shoes #1 ea 05/11/22 07/08/25 Unknown Rx lancets 30 gauge (Ultra Thin #100 ea 08/10/22 07/08/25 Unknown Rx Lancets) ipratropium bromide 42 mcg (0.06 2 spray intranasal TID PRN 10/17/22 08/25/25 08/29/25 History %) nasal spray Shortness Of Breath blood glucose control, low (True #1 ea 01/21/23 07/08/25 Unknown Rx Metrix Level 1 solution) cholecalciferol (vitamin D3) 125 125 mcg PO DAILY #90 tabs 01/21/23 08/25/25 08/29/25 Rx mcg (5,000 unit) tablet (Vitamin D3) pen needle, diabetic 31 gauge x #4 ea 01/21/23 07/08/25 Unknown Rx /16 (1st Tier Unifine Pentips Plus) flash glucose scanning reader #1 ea 04/04/23 07/08/25 Unknown Rx (FreeStyle Gregorio 2 [place]) blood sugar diagnostic (True #100 strips 04/19/23 07/08/25 Unknown Rx Metrix Glucose Test Strip) nitroglycerin 0.4 mg sublingual 0.4 mg sublingual PRN Chest Pain 10/22/24 08/25/25 Unknown Rx tablet #25 tabs flash glucose sensor (FreeStyle #3 kits 11/24/24 07/08/25 Unknown Rx Gregorio 2 Sensor kit) potassium chloride 8 mEq See Rx Instructions .Route 03/29/25 08/25/25 08/29/25 Rx tablet,extended release .COMPLEX #90 tabs metoprolol succinate 25 mg 37.5 mg (1.5 x 25 mg) PO DAILY #45 05/03/25 08/25/25 08/29/25 Rx tablet,extended release 24 hr tabs mometasone-formoterol HFA 100 2 puff inhalation BID 05/03/25 08/25/25 08/29/25 History mcg-5 mcg/actuation aerosol inhaler (Dulera) Diabetic shoes #1 ea 07/08/25 07/08/25 Unknown Rx albuterol sulfate 90 mcg/actuation 2 puff inhalation QID PRN 08/25/25 08/25/25 08/29/25 History aerosol inhaler Shortness Of Breath Or Wheezing duloxetine 60 mg capsule,delayed 60 mg PO BID 08/25/25 08/25/25 08/29/25 History release fenofibrate nanocrystallized 145 145 mg PO DAILY 08/25/25 08/25/25 08/29/25 History mg tablet lovastatin 40 mg tablet 40 mg PO DAILY 08/25/25 08/25/25 08/29/25 History meloxicam 15 mg tablet 15 mg PO DAILY 08/25/25 08/25/25 Unknown History metformin 1,000 mg tablet 1,000 mg PO DAILY 08/25/25 08/25/25 08/29/25 History omeprazole 20 mg capsule,delayed 20 mg PO BID 08/25/25 08/25/25 08/29/25 History release semaglutide 2 mg/dose (8 mg/3 mL) 2 mg SUBCUT DIRECTED 08/25/25 08/25/25 08/26/25 History subcutaneous pen injector (Ozempic) tiotropium bromide 2.5 2 puff inhalation DAILY 08/25/25 08/25/25 08/30/25 04:10 History mcg/actuation mist for inhalation (Spiriva Respimat) tramadol 50 mg tablet 50 mg PO Q8H PRN Pain 08/25/25 08/25/25 Unknown History Allergies Allergy/AdvReac Type Severity Reaction Status Date / Time codeine Allergy Severe ALGY-Anaphy Verified 08/30/25 06:27 laxis latex Allergy Mild ALGY-Rash Verified 08/30/25 06:27 Sulfa (Sulfonamide Allergy Mild ALGY-Redness Verified 08/30/25 06:27 Antibiotics) of Skin gabapentin Allergy ALGY-Redness Verified 08/30/25 06:27 of Skin PFSH Acute PFSH: Medical History Right shoulder pain History of colon polyps Symptomatic PVCs Hyperlipidemia Vitamin D deficiency GERD (gastroesophageal reflux disease) Lesion of spleen Surgical History H/O esophagogastroduodenoscopy (11/24/21) normal Status post colonoscopy (11/24/21) diverticulosis History of colonoscopy with polypectomy 2019 S/P laparoscopic assisted vaginal hysterectomy (LAVH) History of D&C History of loop electrical excision procedure (LEEP) Hx of section Hx of tonsillectomy Hx of tubal ligation Hx of arthroscopy of left knee Family History Family/Other No problems noted. Mother Congestive heart failure (CHF) COPD (chronic obstructive pulmonary disease) Diabetes Hyperlipidemia Hypertension Thyroid disease Grandmother Congestive heart failure (CHF) Maternal COPD (chronic obstructive pulmonary disease) Maternal Diabetes Maternal Hyperlipidemia Maternal Hypertension Maternal Thyroid disease Maternal Social History Smoking and tobacco/nicotine status: never used tobacco/nicotine Substance/Drug Use: never Do you think of yourself as: Straight/Heterosexual Vitals/I&O/Wt Last Vital Signs Temp 98.3 F 08/30/25 06:29 Pulse 85 08/30/25 06:29 Resp 16 08/30/25 06:29 BP 124/68 08/30/25 06:29 O2 Del Method Room Air 08/30/25 06:29 Weight last 48 hrs Weight 186 lb Physical Exam Narrative: GENERAL: The patient is alert and oriented times three. Not in any acute distress. HEENT: No significant pallor, icterus or lymphadenopathy.Oral cavity: There are no mucous membrane lesions. NECK: Trachea appears to be central. No masses noted. No JVD or thyromegaly appreciated. RESPIRATORY: Chest is symmetrical. No intercostals muscle retraction or any accessory muscle activation. There is no chest wall tenderness. Breath sounds are heard bilaterally. No rales or rhonchi heard. No evidence of any consolidation. BREASTS: Deferred. HEART: The heart sounds are normal. No S3 or S4. No significant murmurs. No pericardial rub ABDOMEN: No vessel pulsations or distention. No tenderness. No organomegaly appreciated. Bowel sounds are normally heard. : Deferred. RECTAL: Deferred. LYMPHATIC: No lymphadenopathy noted in the neck. EXTREMITIES: No edema or cyanosis. No clubbing. MUSCULOSKELETAL: No acute joint deformities or swelling SKIN: There are no significant rashes or ecchymosis NEUROPSYCHIATRIC: The patient is alert and oriented x3. Appears to be in a good mood. No tremors or rigidity noted. Data 08/30/25 06:10 08/30/25 06:10 Other Labs: Laboratory Last Values WBC 6.48 10^3/uL (3.29-11.43) 08/30/25 06:10 RBC 4.67 10^6/uL (3.85-5.65) 08/30/25 06:10 Hgb 14.10 g/dL (11.27-16.99) 08/30/25 06:10 Hct 42.5 % (36-47) 08/30/25 06:10 MCV 91.0 fl (85-98) 08/30/25 06:10 MCH 30.2 pg (27-33) 08/30/25 06:10 MCHC 33.2 g/dL (30-55) 08/30/25 06:10 RDW 13.3 % (12.1-15.1) 08/30/25 06:10 Plt Count 274 10^3/cmm (157-399) 08/30/25 06:10 MPV 8.8 fL (7.4-10.4) 08/30/25 06:10 Neut % (Auto) 52.7 % 08/30/25 06:10 Lymph % (Auto) 36.1 % 08/30/25 06:10 [place] % (Auto) 7.4 % 08/30/25 06:10 Eos % (Auto) 2.5 % 08/30/25 06:10 Baso % (Auto) 1.1 % 08/30/25 06:10 Neut # (Auto) 3.42 10^3/uL (1.8-7.7) 08/30/25 06:10 Lymph # (Auto) 2.3 10^3/uL (0.8-4.8) 08/30/25 06:10 [place] # (Auto) 0.5 10^3/uL (0.2-0.9) 08/30/25 06:10 Eos # (Auto) 0.2 10^3/uL (0.0-0.8) 08/30/25 06:10 Baso # (Auto) 0.1 10^3/uL (0.0-0.1) 08/30/25 06:10 Nucleated RBC % (auto) 0 % 08/30/25 06:10 Nucleated RBCs # 0.0 /100WBC 08/30/25 06:10 Sodium 141 mmol/L (136-145) 08/30/25 06:10 Potassium 4.1 mmol/L (3.5-5.1) 08/30/25 06:10 Chloride 104 mmol/L (98-107) 08/30/25 06:10 Carbon Dioxide 30 mmol/L (22-29) H 08/30/25 06:10 Anion Gap 11.1 (5-19) 08/30/25 06:10 BUN 18 mg/dL (8-23) 08/30/25 06:10 Creatinine 0.7 mg/dL (0.5-0.9) 08/30/25 06:10 GFR Calculation 84.8 mL/min (90-130) L 08/30/25 06:10 Glucose 148 mg/dL (65-115) H 08/30/25 06:10 Calculated Osmolality 297 mOsm/kg (285-295) H 08/30/25 06:10 Calcium 9.5 mg/dL (8.5-10.5) 08/30/25 06:10 A&P Assessment and plan 1. Abnormal cardiovascular stress test: 2. Mixed hyperlipidemia: 3. Primary hypertension: 4. Symptomatic PVCs: 5. Tachycardia: 6. Cigarette nicotine dependence without complication: 7. Type 2 diabetes mellitus with hyperglycemia, without long-term current use of insulin: In view of the patient's ongoing symptoms of fatigue, dyspnea on exertion, chest pain, increasing palpitations, symptomatic PVCs, in order to further evaluate the coronary status, a cardiac catheterization was recommended. The risk of bleeding, hematoma, vascular injury, myocardial infarction, myocardial perforation, malignant cardiac arrhythmias ,CVA, renal failure and other concomitant complications were explained in detail. Patient understood this well and consented to proceed. Plan: Patient is scheduled for a left heart catheterization with left and right coronary angiogram and possible PCI. Based on the results of the test, further recommendations will be made. She may require an overnight stay PDMP PDMP Reviewed: Not Reviewed Attestations Medical Necessity Statement*: Possible overnight stay Coding Level of Care Code 46050 Diagnoses Abnormal cardiovascular stress test R94.39 Mixed hyperlipidemia E78.2 Hyperlipidemia type: mixed hyperlipidemia Primary hypertension I10 Hypertension type: primary hypertension Symptomatic PVCs I49.3 Tachycardia R00.0 Cigarette nicotine dependence without complication F17.210 Nicotine product type: cigarettes Substance use status: uncomplicated Type 2 diabetes mellitus with hyperglycemia, without long-term current use of insulin E11.65 Diabetes mellitus type: type 2 Diabetes mellitus manager long term care insulin use: without care home use Diabetes mellitus complication status: with hyperglycemia
--- NOTE | 2025-08-30 07:30 | P.HPUD_ITS ---
Surgery/Procedure H&P Update DATE OF PROCEDURE: August 30, 2025 DATE H&P PERFORMED: 08/30/25 PREOP DIAGNOSIS: Atherosclerotic heart disease PRIMARY INDICATION FOR PROCEDURE: Abnormal stress test, multiple risk factors for coronary artery disease PLANNED PROCEDURE: Operation Date: 08/30/25 07:00 Proposed Procedures p Cardiac Catheterization(Left) - Jose Francisco Decker MD PATIENT REASSESSED PRIOR TO SEDATION, WITH NO CHANGE NOTED: Yes PHYSICAL EXAM: alert, oriented x 3 and clear to auscultation bilaterally AIRWAY EVAL/ANESTHESIA PLAN: normal airway, see other exam findings, ASA III, Monitored Anesthesia, Local Anesthesia, Risks, benefits & alternatives of stephanie tion and/or procedure discussed and Patient agrees to continue as planned
--- NOTE | 2025-08-30 08:00 | PC.NURSE ---
Received the patient back from the labor and delivery registered nurse via wheelchair s/p Diagnostic [facility]. Patient ambulated to the cot without difficulty. A & 0 x 3. monitoring analyst placed and vital signs obtained. TR band intact to the right wrist. No bleeding or hematoma noted. Palpable radial pulse. No other assessment changes noted from pre cath assessment. Family at bedside. No concerns voiced at this time.
--- NOTE | 2025-08-30 09:00 | PC.NURSE ---
Letting the air out of the TR band per protocol. No other assessment changes noted at this time. Daughter remains at the bedside.
--- NOTE | 2025-08-30 10:03 | PC.NURSE ---
TR band off per protocol. Right wrist area cleansed with warm water and patted dry. A large band aid was applied to the site and loosely secured with coban. No bleeding or hematoma noted. Palpable radial pulse. Patient tolerated well.
== END 2025-08-30 05:35 | disposition home or self-care (01) ==
PROVIDERS: Internal Medicine Cardiovascular Disease; PCP Family Medicine; Visit Provider Internal Medicine Cardiovascular Disease
DX: R94.39 Abnormal result of other cardiovascular function study (principal); I10 Essential (primary) hypertension; I49.3 Ventricular premature depolarization; R00.0 Tachycardia, unspecified; F17.210 Nicotine dependence, cigarettes, uncomplicated; E11.65 Type 2 diabetes mellitus with hyperglycemia; Z82.49 Family history of ischemic heart disease and other diseases of the circulatory system; K21.9 Gastro-esophageal reflux disease without esophagitis; E78.5 Hyperlipidemia, unspecified; Z79.84 Long term (current) use of oral hypoglycemic drugs
CPT/HCPCS: 36415; 80048; 85025; 93458; 99152; C1769; C1887; C1894; J1644; J2250; J3010; J3490; J7030; J9999; Q0163; Q9967

== ENCOUNTER → 2025-09-09 07:37 | Outpatient (BNVA) | payer MEDICARE, MEDICAID, SELFPAY | PROVIDERS: PCP Family Medicine; Visit Provider Nurse Practitioner Family | DX: I25.10 Atherosclerotic heart disease of native coronary artery without angina pectoris (principal); F17.210 Nicotine dependence, cigarettes, uncomplicated | CPT/HCPCS: 99214 ==